=== PATIENT | male | born 1950 ===

== ENCOUNTER 2019-03-31 10:53 | Inpatient (IN) | payer MEDICARE, MEDICAID ==
[2019-03-31] MEDS ORDERED: Ondansetron INJ* 2 MG/ML VIAL IV PRN (14:26)
[2019-03-31] MEDS ORDERED: methylPREDNISolone SOD 40 MG* 1 ML VIAL IV SCH (15:00)
[2019-03-31 15:24] LABS: ABS Lymphocytes 0.8 10^3/ul (1.0-4.8); ABS Monocytes 0.7 10^3/ul (0-0.8); Hematocrit 41 % (42-52); Hemoglobin 13.5 g/dL (14.0-18.0); Lymphocyte % 7.6 %; Mean Corpuscular HGB Conc 33 g/dL (31-36); Mean Corpuscular Hemoglobin 32 pg (27-31); Mean Corpuscular Volume 98 fL (80-94); Mean Platelet Volume 7.2 fL (7.4-10.4); Platelet Count 193 10^3/uL (150-450); Red Blood Count 4.23 10^6 /uL (4.18-5.48); Red Cell Distribution Width 18 % (10.5-15); White Blood Count 10.5 10^3/uL (3.5-10.8)
[2019-03-31 16:00] LABS: BUN/Creatinine Ratio 27.1 (8-20); Calcium 9.3 mg/dL (8.6-10.3); EGFR African American 107.5 (>60); EGFR Non-African American 88.9 (>60); Magnesium 2.3 mg/dL (1.9-2.7); Potassium 4.4 mmol/L (3.5-5.0)
[2019-03-31] MEDS: cefTRIAXone(*) 1 GM in NS 0.9% 50 ML* 50 ML IVPB SCH (16:04)
[2019-03-31] MEDS: methylPREDNISolone SOD 40 MG* 1 ML VIAL IV SCH ×2 (16:04→23:08)
[2019-03-31] MEDS: Azithromycin TAB* 250 MG PO SCH (16:04)
[2019-03-31] MEDS: Nicotine PATCH 14 MG/24 HR* PATCH TRANSDERM SCH (16:05)
--- NOTE | 2019-03-31 16:14 | HP ---
HISTORY AND PHYSICAL: DATE OF ADMISSION: 03/31/19 SOURCE OF INFORMATION: History obtained from interview with the patient, review of records from [place]. RELIABILITY: Good. CHIEF COMPLAINT: Respiratory failure. HISTORY OF PRESENT ILLNESS: This is a 69-year-old man with past medical history of severe COPD, on 3 L home oxygen, reportedly CHF-unknown type, chronic smoker of 1 pack per day for about 60 years, who had been in his usual state of health until Thursday approximately 4 days before his admission to [place] on 03/29/19, started to develop cough followed by the next day cough and shortness of breath bringing up sputum. He developed progressively shortness of breath until 03/29/19 when he presented to [facility], was admitted with acute respiratory failure, admitted inpatient, requiring Vapotherm. The patient is noted to have severe COPD, recurrent admissions, last in August 2018. For COPD exacerbation, he took about 8 days to recover at that time. The patient indicates this felt similar to that event. He has had increasing lower extremity edema in the absence of orthopnea or PND and absence of weight gain. He has had no fevers, chills, night sweats. No chest pain, lightheadedness, loss of consciousness, or change in medications. While his shortness of breath increased, he did not increase the use of his home inhalers, nor increase his home oxygen, but was found to have a greatly increased need of oxygen upon presentation to [facility]. After admission to [facility], he was started on methylprednisolone 80 mg q.8 hours as well as ceftriaxone and azithromycin, although chest x-ray report reviewed here does not indicate evidence of infiltrate or pneumonia as well as continued on inhaled nebulizers and COPD medications including inhaled steroids. Despite above interventions, his respiratory status was noted to not dramatically improve, still requiring Vapotherm. Because of the slow progress over the last 48 hours, he was thought to benefit from a higher level of care and was transferred to [facility] where he was admitted into the ICU. On presentation to the ICU, he did not require Vapotherm, he was placed on 5 L and satting 93%. Still endorsing cough, sputum production and shortness of breath at rest particularly after his paroxysm of cough. He does not generally feel any improvement from the last 48 hours of the hospital stay. PAST MEDICAL HISTORY: Includes: 1. COPD, multiple past admissions, most recent in [place] in August 2018. 2. Hypertension. 3. Hyperlipidemia. 4. CAD. 5. Hypothyroidism. 6. Congestive heart failure. 7. History of alcohol abuse. 8. History of anxiety and depression. 9. Restless legs syndrome. 10. Bipolar disorder. 11. Chronic constipation. 12. History of pleural effusions/chronic. 13. History of pneumonia. PAST SURGICAL HISTORY: Cardiac bypass, left foot reconstruction, status post left shoulder surgery, rotator cuff repair, left wrist fracture open reduction and internal fixation, right inguinal hernia repair. HOME MEDICATIONS: 1. Tylenol 500 every 6 hours. 2. Albuterol nebulizer every 2 hours as needed. 3. Aspirin 81 mg daily. 4. Atorvastatin 40 mg daily. 5. Coreg 3.125 mg b.i.d. 6. Vitamin B12 500 mcg daily. 7. Benadryl 25 mg in the evening. 8. Ferrous sulfate 325 mg daily. 9. Breo Ellipta daily. 10. Folic acid 1 mg daily. 11. Furosemide 20 mg twice daily. 12. Guaifenesin 600 mg twice daily. 13. DuoNeb q.4 hours as needed. 14. Levothyroxine 125 mcg daily. 15. Lisinopril 2.5 mg daily. 16. Lorazepam 0.5 mg 3 times a day. 17. Nystatin topically as needed. 18. Endocet 10/325 in the evening. 19. Potassium chloride 10 mEq twice daily. 20. SSKI 0.6 mL 4 times a day as needed. 21. Quetiapine 100 mg twice daily. 22. Ropinirole 1.5 mg in the evening. 23. Sertraline 50 mg daily. 24. Spironolactone 50 mg daily. 25. Thiamine 100 mg daily. ALLERGIES: To LEVAQUIN and LATEX. FAMILY HISTORY: CAD in "everybody in my family." No COPD or other lung disorders. SOCIAL HISTORY: One pack a day for approximately 60 years. He is a retired machinist 2nd shift. Occasional alcohol. Lives at [facility]. REVIEW OF SYSTEMS: As per HPI, otherwise all other systems negative. PHYSICAL EXAMINATION GENERAL: Obese man, sitting up in bed, interactive, has cough paroxysmal after which he is short of breath, although ultimately catches his breath and talking in full sentences. VITAL SIGNS: In the ICU, blood pressure 132/85, heart rate is 73, respiratory rate is 18, 95% on 5 L nasal cannula. HEENT: Oropharynx is clear. He has moist mucous membranes. Sclerae anicteric. LUNGS: He has decreased breath sounds bilaterally with diffusely prominent wheezes and prolonged end-expiratory phase. HEART: He has a regular rate and rhythm. No audible murmurs, rubs, or gallops , although difficult to appreciate over wheezings. ABDOMEN: Distended, nontender. Positive bowel sounds. No rebound or guarding. EXTREMITIES: Warm, well perfused. He has 1+ bilateral lower extremity edema. NEUROLOGIC: He is alert and oriented x3. His cranial nerves II through XII are intact. He has no apparent anxiety, agitation, or depression. DIAGNOSTIC STUDIES/LAB DATA: Labs reviewed from [place]. New labs from today have been ordered. Hemoglobin 13.4, hematocrit 42.8, platelets 194, white blood cell count is 9.37. ABG on presentation: CO2 of 61, pO2 of 62, pH 7.43. INR 0.95. Sodium 142, potassium 4, chloride 99, bicarb 33, BUN 19, creatinine 0.9, lactic acid was 2.0 on presentation, calcium 8.6. Benign urinalysis. Data reviewed. Portable chest x-ray, no definite acute disease. EKG: Borderline left axis, right bundle-branch block. ASSESSMENT AND PLAN: This is a 69-year-old man admitted with respiratory failure from [facility] after 48 hours of therapy for chronic obstructive pulmonary disease exacerbation. 1. Acute hypoxic respiratory failure. Agree with [place]'s assessment on chronic obstructive pulmonary disease exacerbation based on clinical exam as well as past medical history and clinical crescendo leading to his shortness of breath. I do agree with their therapy, 80 mg of IV methylprednisolone q.8 hours. Continue with DuoNebs, tiotropium, and rescue albuterol-ipratropium. He has been weaned off of Vapotherm to 5 L nasal cannula, will continue as necessary. His recovery in August 2018 took about 8 days and he feels this is similar presentation as that was as well. Continue ceftriaxone and azithromycin for 3 additional days for a complete course of 5 days for his severe chronic obstructive pulmonary disease exacerbation. 2. Congestive heart failure, not in exacerbation, unknown type. Continue Lasix p.o. at home dose. 3. Hypertension. Lisinopril, spironolactone, Coreg 3.125 mg as well. 4. Bipolar disorder. Holding quetiapine currently until respiratory status is stabilized. 5. Hypothyroidism. Continue Synthroid. 6. Anxiety. Holding lorazepam until respiratory status is stabilized. 7. Depression. Continue sertraline. 8. Tobacco abuse. Continue nicotine patch. 9. DVT prophylaxis. Heparin subcu. [id number]/CPS #: [id number] [facility]
[2019-03-31] MEDS ORDERED: Albuterol/Ipratropium NEB.SOL* Albuterol 2.5 MG/Ipratropium 0.5 MG 3 ML INH SCH (19:00)
[2019-03-31] MEDS: Albuterol/Ipratropium NEB.SOL* Albuterol 2.5 MG/Ipratropium 0.5 MG 3 ML INH SCH ×2 (19:27→23:05)
[2019-03-31] MEDS: Mometasone/Formoter 200/5 MDI INH SCH (19:27)
[2019-03-31] MEDS ORDERED: Atorvastatin* 80 MG TAB PO ONE (21:00)
[2019-03-31] MEDS: Furosemide TAB* 20 MG PO SCH ×2 (21:09→21:13)
[2019-03-31] MEDS: Carvedilol TAB* 3.125 MG PO SCH (21:09)
[2019-03-31] MEDS: Nicotine Patch Removal NOTE FOLLOW UP SCH (21:10)
[2019-03-31] MEDS: Heparin VIAL(*) 5000 UNITS/ML VIAL (FIVE THOUSAND) SUBCUT SCH (21:10)
[2019-04-01] MEDS: Albuterol/Ipratropium NEB.SOL* Albuterol 2.5 MG/Ipratropium 0.5 MG 3 ML INH SCH ×6 (03:02→22:53)
[2019-04-01] MEDS: Heparin VIAL(*) 5000 UNITS/ML VIAL (FIVE THOUSAND) SUBCUT SCH ×3 (05:12→21:15)
[2019-04-01] MEDS: Levothyroxine TAB* 125 MCG TAB PO SCH (05:12)
[2019-04-01] MEDS: methylPREDNISolone SOD 40 MG* 1 ML VIAL IV SCH ×3 (06:32→22:52)
[2019-04-01] MEDS: Mometasone/Formoter 200/5 MDI INH SCH ×2 (07:38→19:24)
[2019-04-01] MEDS ORDERED: Spiriva Inhaler DEVICE* 1 EACH DEVICE INH ONE ×2 (09:00→14:00)
[2019-04-01] MEDS ORDERED: Furosemide TAB* 20 MG PO SCH (09:00)
[2019-04-01] MEDS: Carvedilol TAB* 3.125 MG PO SCH ×2 (09:09→20:27)
[2019-04-01] MEDS: Lisinopril TAB* 10 MG PO SCH (09:09)
[2019-04-01] MEDS: Aspirin 81 mg CHEW TAB* 81 MG TAB.CHEW PO SCH (09:10)
[2019-04-01] MEDS: Spironolactone TAB* 25 MG PO SCH (09:10)
[2019-04-01] MEDS: Azithromycin TAB* 250 MG PO SCH (09:10)
[2019-04-01] MEDS: Sertraline* 50 MG TAB PO SCH (09:10)
[2019-04-01] MEDS: Nicotine PATCH 14 MG/24 HR* PATCH TRANSDERM SCH (09:10)
[2019-04-01] MEDS: Furosemide TAB* 20 MG PO SCH (09:10)
[2019-04-01 13:41] LABS: ABS Lymphocytes 0.8 10^3/ul (1.0-4.8); ABS Monocytes 0.7 10^3/ul (0-0.8); ABS Neutrophils 9.4 10^3/ul (1.5-7.7); Hematocrit 41 % (42-52); Hemoglobin 13.7 g/dL (14.0-18.0); Lymphocyte % 7.4 %; Mean Corpuscular HGB Conc 34 g/dL (31-36); Mean Corpuscular Hemoglobin 33 pg (27-31); Mean Corpuscular Volume 97 fL (80-94); Mean Platelet Volume 7.5 fL (7.4-10.4); Platelet Count 196 10^3/uL (150-450); Red Blood Count 4.19 10^6 /uL (4.18-5.48); Red Cell Distribution Width 17 % (10.5-15); White Blood Count 10.8 10^3/uL (3.5-10.8)
[2019-04-01 13:46] LABS: BUN/Creatinine Ratio 31.3 (8-20); EGFR African American 141.5 (>60); EGFR Non-African American 116.9 (>60); Potassium 4.4 mmol/L (3.5-5.0)
[2019-04-01] MEDS: Tiotropium CAP.INH* CAP.INH/18 MCG (USE ORDER SET !) INH SCH (14:13)
[2019-04-01] MEDS: cefTRIAXone(*) 1 GM in NS 0.9% 50 ML* 50 ML IVPB SCH (14:53)
--- NOTE | 2019-04-01 17:47 | PN ---
Subjective Date of Service: 04/01/19 Interval History: Out of ICU today Down to 3L O2 NC Feels better but still SOB walking to bathroom, at baseline can walk indefinitely Objective Active Medications: Acetaminophen (Tylenol Tab*) 650 mg PO Q4H PRN PRN Reason: FEVER/PAIN Albuterol/Ipratropium (Duoneb (Albuterol 2.5 Mg/Ipratropium 0.5 Mg)) 1 neb INH [id number] [facility] Last Admin: 04/01/19 15:47 Dose: 1 neb Aspirin (Aspirin 81 Mg Chew Tab*) 81 mg PO DAILY [facility] Last Admin: 04/01/19 09:10 Dose: 81 mg Azithromycin (Zithromax Tab*) 250 mg PO DAILY [facility] Stop: 04/02/19 09:01 Last Admin: 04/01/19 09:10 Dose: 250 mg Carvedilol (Coreg Tab*) 3.125 mg PO BID [facility] Last Admin: 04/01/19 09:09 Dose: 3.125 mg Furosemide (Lasix Tab*) 40 mg PO DAILY [facility] Heparin Sodium (Porcine) (Heparin Vial(*)) 5,000 units SUBCUT Q8HR [facility] Last Admin: 04/01/19 14:13 Dose: 5,000 units Ceftriaxone Sodium 1 gm/ (Sodium Chloride) 50 mls @ 200 mls/hr IVPB Q24H [facility] Stop: 04/02/19 15:14 Last Admin: 04/01/19 14:53 Dose: 200 mls/hr Levothyroxine Sodium (Synthroid Tab*) 125 mcg PO DAILY@0600 [facility] Last Admin: 04/01/19 05:12 Dose: 125 mcg Lisinopril (Prinivil Tab*) 10 mg PO DAILY [facility] Last Admin: 04/01/19 09:09 Dose: 10 mg Methylprednisolone Sodium Succinate (Solu-Medrol 40 Mg) 60 mg IV Q8H [facility] Last Admin: 04/01/19 14:46 Dose: 60 mg Mometasone Furoate/Formoterol Fumar (Dulera 200/5 Mdi*) 2 puff INH BID [facility] Last Admin: 04/01/19 07:38 Dose: 2 puff Nicotine (Nicotine Patch 14 Mg/24 Hr*) 1 patch TRANSDERM DAILY [facility] Last Admin: 04/01/19 09:10 Dose: 1 patch Ondansetron HCl (Zofran Inj*) 4 mg IV Q4H PRN PRN Reason: NAUSEA/VOMITING Oxycodone/Acetaminophen (Percocet 5/325 Tab*) 2 tab PO Q8H PRN PRN Reason: PAIN Pharmacy Profile Note (Nicotine Patch Removal Note*) 1 note FOLLOW UP [facility]100 [facility] Last Admin: 03/31/19 21:10 Dose: 1 note Sertraline HCl (Zoloft*) 50 mg PO DAILY [facility] Last Admin: 04/01/19 09:10 Dose: 50 mg Spironolactone (Aldactone Tab*) 25 mg PO DAILY [facility] Last Admin: 04/01/19 09:10 Dose: 25 mg Tiotropium [place] (Spiriva Cap.Inh*) 1 cap INH DAILY [facility] Last Admin: 04/01/19 14:13 Dose: 1 cap Vital Signs - 8 hr 04/01/19 04/01/19 04/01/19 10:00 10:01 11:00 Temperature Pulse Rate 69 73 70 Respiratory 16 23 18 Rate Blood Pressure 156/73 (mmHg) O2 Sat by Pulse 93 94 95 Oximetry 04/01/19 04/01/19 04/01/19 11:01 11:12 12:00 Temperature 97.1 F Pulse Rate 68 68 65 Respiratory 19 17 18 Rate Blood Pressure 166/80 (mmHg) O2 Sat by Pulse 95 97 93 Oximetry 04/01/19 04/01/19 04/01/19 12:01 13:00 13:01 Temperature Pulse Rate 65 79 79 Respiratory 22 27 18 Rate Blood Pressure 143/71 149/76 (mmHg) O2 Sat by Pulse 94 94 85 Oximetry 04/01/19 04/01/19 04/01/19 14:19 15:47 17:03 Temperature 96.9 F 98.8 F Pulse Rate 95 68 65 Respiratory 24 16 22 Rate Blood Pressure 157/66 124/57 (mmHg) O2 Sat by Pulse 95 98 97 Oximetry Oxygen Devices in Use Now: Nasal Cannula Appearance: NAD Eyes: No Scleral Icterus, PERRLA Ears/Nose/Mouth/Throat: NL Teeth, Lips, Gums, Clear Oropharnyx Neck: NL Appearance and Movements; NL JVP, Trachea Midline Respiratory: Symmetrical Chest Expansion and Respiratory Effort, - - diffuse wheeze, poor air entry Cardiovascular: RRR Abdominal: NL Sounds; No Tenderness; No Distention, No Hepatosplenomegaly Lymphatic: No Cervical Adenopathy Skin: - - 1+ le edema b/l Neurological: Alert and Oriented x 3 Result Diagrams: 04/01/19 13:00 04/01/19 13:00 Microbiology and Other Data: Microbiology 03/31/19 16:30 Nasal Screen MRSA (PCR) - Final Nasal Mrsa Not Detected Assess/Plan/Problems-Billing Assessment: 69 yo M transferred from [place] with hypoxic respiratory failure in setting of suspected COPD exacerbation - Patient Problems (1) Acute respiratory failure with hypoxia Comment: suspect COPD exacerbation Off vapotherm since transfer Last hospital stay 8 days at [place] with the same in 2018 c/w IV steroids, dulera, tiotropium wean oxygen (2) COPD (chronic obstructive pulmonary disease) Comment: As above for respiratory failure (3) CHF (congestive heart failure) Comment: not in exacerbation does not want to take home lasix BID switched to 40mg daily in AM unknown type CHF (4) Anxiety Comment: lorazepam on hold can restart if respiratory status stable and requested (5) Tobacco abuse Comment: nicotine patch cessation counseling (6) DVT prophylaxis Comment: HSQ
[2019-04-01] MEDS: guaiFENesin ER TAB 600 MG PO SCH (20:27)
[2019-04-01] MEDS: Nicotine Patch Removal NOTE FOLLOW UP SCH (20:28)
[2019-04-01] MEDS: Melatonin 3 MG TAB PO PRN (21:40)
[2019-04-02] MEDS ORDERED: Benzonatate CAP* 100 MG PO ONE (01:25)
[2019-04-02] MEDS: Albuterol/Ipratropium NEB.SOL* Albuterol 2.5 MG/Ipratropium 0.5 MG 3 ML INH SCH ×5 (03:04→23:15)
[2019-04-02] MEDS: Heparin VIAL(*) 5000 UNITS/ML VIAL (FIVE THOUSAND) SUBCUT SCH ×3 (06:03→21:38)
[2019-04-02] MEDS: Levothyroxine TAB* 125 MCG TAB PO SCH (06:03)
[2019-04-02] MEDS: methylPREDNISolone SOD 40 MG* 1 ML VIAL IV SCH (06:15)
[2019-04-02] MEDS: Tiotropium CAP.INH* CAP.INH/18 MCG (USE ORDER SET !) INH SCH (07:28)
[2019-04-02] MEDS: Mometasone/Formoter 200/5 MDI INH SCH ×2 (07:28→19:24)
[2019-04-02] MEDS: Carvedilol TAB* 3.125 MG PO SCH ×2 (09:45→20:45)
[2019-04-02] MEDS: Spironolactone TAB* 25 MG PO SCH (09:45)
[2019-04-02] MEDS: Lisinopril TAB* 10 MG PO SCH (09:45)
[2019-04-02] MEDS: Furosemide TAB* 40 MG PO SCH (09:46)
[2019-04-02] MEDS: Sertraline* 50 MG TAB PO SCH (09:46)
[2019-04-02] MEDS: Aspirin 81 mg CHEW TAB* 81 MG TAB.CHEW PO SCH (09:46)
[2019-04-02] MEDS: guaiFENesin ER TAB 600 MG PO SCH (09:46)
[2019-04-02] MEDS: Azithromycin TAB* 250 MG PO SCH (09:46)
[2019-04-02] MEDS: Nicotine PATCH 14 MG/24 HR* PATCH TRANSDERM SCH (09:46)
[2019-04-02] MEDS ORDERED: Benzocaine/Menthol LOZ* 1 LOZENGE PO PRN (10:14)
[2019-04-02] MEDS ORDERED: Piperacillin/Tazobac ADVAN(*) 3.375 GM in NS 0.9% 100 ML* 100 ML IVPB ONE (10:30)
[2019-04-02] MEDS ORDERED: Zosyn per Pharmacy* NOTE FOLLOW UP SCH (11:00)
[2019-04-02] MEDS ORDERED: Vancomycin per Pharmacy* NOTE FOLLOW UP PRN (11:38)
[2019-04-02] MEDS: oxyCODONE/Acetamin 5/325 MG* TAB PO PRN (11:55)
[2019-04-02] MEDS: methylPREDNISolone 125 MG* 2 ML VIAL IV SCH ×2 (11:56→17:16)
[2019-04-02] MEDS: Benzonatate CAP* 100 MG PO PRN (11:59)
[2019-04-02] MEDS: Azithromycin 500 mg/250 ml NS 500 MG/250 ML BAG IVPB SCH (11:59)
[2019-04-02] MEDS ORDERED: Vancomycin(*) 2,000 MG in NS 0.9% 500 ML* 500 ML IVPB ONE (12:00)
--- NOTE | 2019-04-02 14:16 | PN ---
Subjective Date of Service: 04/02/19 Interval History: Very sob. Unable to talk in full sentences this am.Coughing fit Objective Active Medications: Acetaminophen (Tylenol Tab*) 650 mg PO Q4H PRN PRN Reason: FEVER/PAIN Albuterol/Ipratropium (Duoneb (Albuterol 2.5 Mg/Ipratropium 0.5 Mg)) 1 neb INH Q6H [facility] Last Admin: 04/02/19 10:13 Dose: 1 neb Albuterol/Ipratropium (Duoneb (Albuterol 2.5 Mg/Ipratropium 0.5 Mg)) 1 neb INH Q2H PRN PRN Reason: SOB/WHEEZING Aspirin (Aspirin 81 Mg Chew Tab*) 81 mg PO DAILY [facility] Last Admin: 04/02/19 09:46 Dose: 81 mg Benzonatate (Tessalon Cap*) 100 mg PO BID PRN PRN Reason: COUGH Last Admin: 04/02/19 11:59 Dose: 100 mg Carvedilol (Coreg Tab*) 3.125 mg PO BID [facility] Last Admin: 04/02/19 09:45 Dose: 3.125 mg Furosemide (Lasix Tab*) 40 mg PO DAILY [facility] Last Admin: 04/02/19 09:46 Dose: 40 mg Heparin Sodium (Porcine) (Heparin Vial(*)) 5,000 units SUBCUT Q8HR [facility] Last Admin: 04/02/19 12:53 Dose: 5,000 units Azithromycin (Zithromax 500 Mg/250 Ml) 500 mg in 250 mls @ 250 mls/hr IVPB Q24H [facility] Last Admin: 04/02/19 11:59 Dose: 250 mls/hr Piperacillin Sod/Tazobactam (Sod 3.375 gm/ Sodium Chloride) 100 mls @ 25 mls/ hr IVPB Q8H [facility] Vancomycin HCl 1,000 mg/ (Sodium Chloride) 250 mls @ 166.667 mls/hr IVPB Q8H [facility] Levothyroxine Sodium (Synthroid Tab*) 125 mcg PO DAILY@0600 [facility] Last Admin: 04/02/19 06:03 Dose: 125 mcg Lisinopril (Prinivil Tab*) 10 mg PO DAILY [facility] Last Admin: 04/02/19 09:45 Dose: 10 mg Melatonin (Melatonin) 3 mg PO BEDTIME PRN PRN Reason: SLEEP Last Admin: 04/01/19 21:40 Dose: 3 mg Methylprednisolone Sodium Succinate (Solu-Medrol 125mg *) 60 mg IV Q6H [facility] Last Admin: 04/02/19 11:56 Dose: 60 mg Mometasone Furoate/Formoterol Fumar (Dulera 200/5 Mdi*) 2 puff INH BID [facility] Last Admin: 04/02/19 07:28 Dose: 2 puff Nicotine (Nicotine Patch 14 Mg/24 Hr*) 1 patch TRANSDERM DAILY [facility] Last Admin: 04/02/19 09:46 Dose: 1 patch Oxycodone/Acetaminophen (Percocet 5/325 Tab*) 2 tab PO Q8H PRN PRN Reason: PAIN Last Admin: 04/02/19 11:55 Dose: 2 tab Pharmacy Consult (Zosyn Per Pharmacy*) 1 note FOLLOW UP .ZOSYN PER PHARMACY [facility] Pharmacy Consult (Vancomycin Per Pharmacy*) 1 note FOLLOW UP . PRN PRN Reason: PER PROTOCOL Pharmacy Profile Note (Nicotine Patch Removal Note*) 1 note FOLLOW UP [address] [facility] Last Admin: 04/01/19 20:28 Dose: Not Given Pharmacy Profile Note (Vancomycin Trough Check) 1 note FOLLOW UP ONCE ONE Stop: 04/03/19 11:31 Sertraline HCl (Zoloft*) 50 mg PO DAILY [facility] Last Admin: 04/02/19 09:46 Dose: 50 mg Spironolactone (Aldactone Tab*) 25 mg PO DAILY [facility] Last Admin: 04/02/19 09:45 Dose: 25 mg Tamsulosin HCl (Flomax Cap*) 0.4 mg PO DAILY [facility] Throat Lozenges (Chloraseptic Vijay*) 1 vijay PO Q6H PRN PRN Reason: SORE THROAT Tiotropium [place] (Spiriva Cap.Inh*) 1 cap INH DAILY [facility] Last Admin: 04/02/19 07:28 Dose: 1 cap Vital Signs - 8 hr 04/02/19 04/02/19 04/02/19 06:59 07:29 08:00 Temperature 97.8 F Pulse Rate 61 65 Respiratory 20 16 20 Rate Blood Pressure 118/51 (mmHg) O2 Sat by Pulse 94 97 Oximetry 04/02/19 04/02/19 04/02/19 10:15 11:39 11:55 Temperature 96.7 F Pulse Rate 80 73 Respiratory 18 20 18 Rate Blood Pressure 131/52 (mmHg) O2 Sat by Pulse 98 95 Oximetry Oxygen Devices in Use Now: Nasal Cannula Eyes: No Scleral Icterus Neck: NL Appearance and Movements; NL JVP Respiratory: Symmetrical Chest Expansion and Respiratory Effort, - - bilateral wheezes, rhonchi Cardiovascular: NL Sounds; No Murmurs; No JVD, RRR Abdominal: NL Sounds; No Tenderness; No Distention Neurological: Alert and Oriented x 3 Result Diagrams: 04/01/19 13:00 04/01/19 13:00 Microbiology and Other Data: Microbiology 03/31/19 16:30 Nasal Screen MRSA (PCR) - Final Nasal Mrsa Not Detected Assess/Plan/Problems-Billing Assessment: 69 yo M transferred from [place] with hypoxic respiratory failure in setting of suspected COPD exacerbation - Patient Problems (1) Pneumonia Current Visit: Yes Status: Acute Code(s): J18.9 - PNEUMONIA, UNSPECIFIED ORGANISM SNOMED Code(s): 873468563 Comment: No improvement on CAP coverage for a few days Will change to HCAP coverage with zosyn vanco and atypical coverage with azithromycin (2) COPD (chronic obstructive pulmonary disease) Current Visit: Yes Status: Acute Code(s): J44.9 - CHRONIC OBSTRUCTIVE PULMONARY DISEASE, UNSPECIFIED SNOMED Code(s): 75800512 Comment: Will increase solumedrol, make duoneb more freq prn exapand antibiotics (3) Acute respiratory failure with hypoxia Current Visit: Yes Status: Acute Code(s): J96.01 - ACUTE RESPIRATORY FAILURE WITH HYPOXIA SNOMED Code(s): 19564531 Comment: sec copd exacerbation and pneumonia Off vapotherm since transfer Last hospital stay 8 days at [place] with the same in 2018 (4) Anxiety Current Visit: Yes Status: Acute Code(s): F41.9 - ANXIETY DISORDER, UNSPECIFIED SNOMED Code(s): 21735136 Comment: lorazepam on hold can restart if respiratory status stable and requested (5) CHF (congestive heart failure) Current Visit: Yes Status: Acute Code(s): I50.9 - HEART FAILURE, UNSPECIFIED SNOMED Code(s): 28335504 Comment: not in exacerbation does not want to take home lasix BID switched to 40mg daily in AM unknown type CHF (6) DVT prophylaxis Current Visit: Yes Status: Acute Code(s): Z29.9 - ENCOUNTER FOR PROPHYLACTIC MEASURES, UNSPECIFIED SNOMED Code(s): 811949509 Comment: HSQ (7) Tobacco abuse Current Visit: Yes Status: Acute Code(s): Z72.0 - TOBACCO USE SNOMED Code( s): 981145022 Comment: nicotine patch cessation counseling
[2019-04-02] MEDS: ZOSYN 3.375 GM Q8H per EXTENDED INFUSION IVPB SCH ×4 (15:39→23:05)
[2019-04-02] MEDS: Tamsulosin CAP* 0.4 MG PO SCH (15:39)
[2019-04-02] MEDS: Vancomycin(*) 1,000 MG in NS 0.9% 250 ML* 250 ML IVPB SCH (19:28)
[2019-04-02] MEDS: Nicotine Patch Removal NOTE FOLLOW UP SCH (20:45)
[2019-04-03] MEDS: methylPREDNISolone 125 MG* 2 ML VIAL IV SCH ×4 (00:05→17:17)
[2019-04-03] MEDS: Melatonin 3 MG TAB PO PRN ×2 (02:38→20:28)
[2019-04-03] MEDS: Vancomycin(*) 1,000 MG in NS 0.9% 250 ML* 250 ML IVPB SCH ×3 (04:09→22:12)
[2019-04-03] MEDS: Albuterol/Ipratropium NEB.SOL* Albuterol 2.5 MG/Ipratropium 0.5 MG 3 ML INH SCH ×6 (05:47→19:20)
[2019-04-03] MEDS: Levothyroxine TAB* 125 MCG TAB PO SCH (05:59)
[2019-04-03] MEDS: Heparin VIAL(*) 5000 UNITS/ML VIAL (FIVE THOUSAND) SUBCUT SCH ×3 (06:03→20:30)
[2019-04-03] MEDS: Albuterol/Ipratropium NEB.SOL* Albuterol 2.5 MG/Ipratropium 0.5 MG 3 ML INH PRN ×2 (06:40→10:30)
[2019-04-03 06:44] LABS: ABS Lymphocytes 0.7 10^3/ul (1.0-4.8); ABS Monocytes 0.4 10^3/ul (0-0.8); Hematocrit 41 % (42-52); Hemoglobin 13.5 g/dL (14.0-18.0); Lymphocyte % 6.5 %; Mean Corpuscular HGB Conc 33 g/dL (31-36); Mean Corpuscular Hemoglobin 33 pg (27-31); Mean Corpuscular Volume 98 fL (80-94); Mean Platelet Volume 7.3 fL (7.4-10.4); Platelet Count 164 10^3/uL (150-450); Red Blood Count 4.16 10^6 /uL (4.18-5.48); Red Cell Distribution Width 17 % (10.5-15); White Blood Count 10.2 10^3/uL (3.5-10.8)
[2019-04-03 07:01] LABS: BUN/Creatinine Ratio 30.9 (8-20); Calcium 8.6 mg/dL (8.6-10.3); EGFR African American 139.1 (>60); Potassium 4.6 mmol/L (3.5-5.0)
[2019-04-03] MEDS: Tiotropium CAP.INH* CAP.INH/18 MCG (USE ORDER SET !) INH SCH (07:23)
[2019-04-03] MEDS: Mometasone/Formoter 200/5 MDI INH SCH ×2 (07:23→19:21)
[2019-04-03] MEDS: ZOSYN 3.375 GM Q8H per EXTENDED INFUSION IVPB SCH ×4 (07:46→17:41)
[2019-04-03] MEDS: oxyCODONE/Acetamin 5/325 MG* TAB PO PRN ×2 (07:46→17:15)
[2019-04-03] MEDS: Benzonatate CAP* 100 MG PO PRN ×2 (07:46→20:28)
[2019-04-03] MEDS: Nicotine PATCH 14 MG/24 HR* PATCH TRANSDERM SCH (07:47)
[2019-04-03] MEDS: Spironolactone TAB* 25 MG PO SCH (07:47)
[2019-04-03] MEDS: Lisinopril TAB* 10 MG PO SCH (07:48)
[2019-04-03] MEDS: Aspirin 81 mg CHEW TAB* 81 MG TAB.CHEW PO SCH (07:48)
[2019-04-03] MEDS: Tamsulosin CAP* 0.4 MG PO SCH (07:48)
[2019-04-03] MEDS: Carvedilol TAB* 3.125 MG PO SCH ×2 (07:48→20:28)
[2019-04-03] MEDS: Sertraline* 50 MG TAB PO SCH (07:48)
[2019-04-03] MEDS: Furosemide TAB* 40 MG PO SCH (07:48)
[2019-04-03] MEDS: Azithromycin 500 mg/250 ml NS 500 MG/250 ML BAG IVPB SCH (10:40)
[2019-04-03] MEDS ORDERED: Vancomycin Trough Check NOTE FOLLOW UP ONE (11:30)
--- NOTE | 2019-04-03 15:28 | PN ---
Subjective Date of Service: 04/03/19 Interval History: Reports that he feels 10% better.Still SOB.Coughing improved Objective Active Medications: Acetaminophen (Tylenol Tab*) 650 mg PO Q4H PRN PRN Reason: FEVER/PAIN Albuterol/Ipratropium (Duoneb (Albuterol 2.5 Mg/Ipratropium 0.5 Mg)) 1 neb INH Q2H PRN PRN Reason: SOB/WHEEZING Last Admin: 04/03/19 10:30 Dose: 1 neb Albuterol/Ipratropium (Duoneb (Albuterol 2.5 Mg/Ipratropium 0.5 Mg)) 1 neb INH Q6H [facility] Last Admin: 04/03/19 13:28 Dose: 1 neb Aspirin (Aspirin 81 Mg Chew Tab*) 81 mg PO DAILY [facility] Last Admin: 04/03/19 07:48 Dose: 81 mg Benzonatate (Tessalon Cap*) 100 mg PO BID PRN PRN Reason: COUGH Last Admin: 04/03/19 07:46 Dose: 100 mg Carvedilol (Coreg Tab*) 3.125 mg PO BID [facility] Last Admin: 04/03/19 07:48 Dose: 3.125 mg Furosemide (Lasix Tab*) 40 mg PO DAILY [facility] Last Admin: 04/03/19 07:48 Dose: 40 mg Heparin Sodium (Porcine) (Heparin Vial(*)) 5,000 units SUBCUT Q8HR [facility] Last Admin: 04/03/19 14:23 Dose: 5,000 units Azithromycin (Zithromax 500 Mg/250 Ml) 500 mg in 250 mls @ 250 mls/hr IVPB Q24H [facility] Last Admin: 04/03/19 10:40 Dose: 250 mls/hr Piperacillin Sod/Tazobactam (Sod 3.375 gm/ Sodium Chloride) 100 mls @ 25 mls/ hr IVPB Q8H [facility] Last Admin: 04/03/19 07:46 Dose: 25 mls/hr Vancomycin HCl 1,000 mg/ (Sodium Chloride) 250 mls @ 166.667 mls/hr IVPB Q8H [facility] Last Admin: 04/03/19 14:00 Dose: 166.667 mls/hr Levothyroxine Sodium (Synthroid Tab*) 125 mcg PO DAILY@0600 [facility] Last Admin: 04/03/19 05:59 Dose: 125 mcg Lisinopril (Prinivil Tab*) 10 mg PO DAILY [facility] Last Admin: 04/03/19 07:48 Dose: 10 mg Melatonin (Melatonin) 3 mg PO BEDTIME PRN PRN Reason: SLEEP Last Admin: 04/03/19 02:38 Dose: 3 mg Methylprednisolone Sodium Succinate (Solu-Medrol 125mg *) 60 mg IV Q6H [facility] Last Admin: 04/03/19 14:22 Dose: 60 mg Mometasone Furoate/Formoterol Fumar (Dulera 200/5 Mdi*) 2 puff INH BID [facility] Last Admin: 04/03/19 07:23 Dose: 2 puff Nicotine (Nicotine Patch 14 Mg/24 Hr*) 1 patch TRANSDERM DAILY [facility] Last Admin: 04/03/19 07:47 Dose: 1 patch Oxycodone/Acetaminophen (Percocet 5/325 Tab*) 2 tab PO Q8H PRN PRN Reason: PAIN Last Admin: 04/03/19 07:46 Dose: 2 tab Pharmacy Consult (Zosyn Per Pharmacy*) 1 note FOLLOW UP .ZOSYN PER PHARMACY [facility] Pharmacy Consult (Vancomycin Per Pharmacy*) 1 note FOLLOW UP . PRN PRN Reason: PER PROTOCOL Pharmacy Profile Note (Nicotine Patch Removal Note*) 1 note FOLLOW UP [address] [facility] Last Admin: 04/02/19 20:45 Dose: Not Given Sertraline HCl (Zoloft*) 50 mg PO DAILY [facility] Last Admin: 04/03/19 07:48 Dose: 50 mg Spironolactone (Aldactone Tab*) 25 mg PO DAILY [facility] Last Admin: 04/03/19 07:47 Dose: 25 mg Tamsulosin HCl (Flomax Cap*) 0.4 mg PO DAILY [facility] Last Admin: 04/03/19 07:48 Dose: 0.4 mg Throat Lozenges (Chloraseptic Vijay*) 1 vijay PO Q6H PRN PRN Reason: SORE THROAT Tiotropium [place] (Spiriva Cap.Inh*) 1 cap INH DAILY [facility] Last Admin: 04/03/19 07:23 Dose: 1 cap Vital Signs - 8 hr 04/03/19 04/03/19 04/03/19 07:26 07:46 09:48 Pulse Rate 70 Respiratory 22 20 20 Rate O2 Sat by Pulse 95 Oximetry 04/03/19 13:31 Pulse Rate 68 Respiratory 17 Rate O2 Sat by Pulse 95 Oximetry Oxygen Devices in Use Now: Nasal Cannula, High Flow Nasal Cannula Eyes: No Scleral Icterus Neck: NL Appearance and Movements; NL JVP Respiratory: - - bilateral wheezes and rhonchi Cardiovascular: NL Sounds; No Murmurs; No JVD, RRR Abdominal: NL Sounds; No Tenderness; No Distention Extremities: No Edema Neurological: Alert and Oriented x 3 Result Diagrams: 04/03/19 06:37 04/03/19 06:37 Microbiology and Other Data: Microbiology 03/31/19 16:30 Nasal Screen MRSA (PCR) - Final Nasal Mrsa Not Detected Assess/Plan/Problems-Billing Assessment: 69 yo M transferred from [place] with hypoxic respiratory failure in setting of suspected COPD exacerbation - Patient Problems (1) Pneumonia Current Visit: Yes Status: Acute Code(s): J18.9 - PNEUMONIA, UNSPECIFIED ORGANISM SNOMED Code(s): 918552023 Comment: No improvement on CAP coverage for a few days Changed to HCAP coverage with zosyn vanco and atypical coverage with azithromycin with improvement Can de escalate antibiotics based on clinical progress (2) COPD (chronic obstructive pulmonary disease) Current Visit: Yes Status: Acute Code(s): J44.9 - CHRONIC OBSTRUCTIVE PULMONARY DISEASE, UNSPECIFIED SNOMED Code(s): 31564401 Comment: Increased solumedrol, duoneb scheduled and prn exapanded antibiotics for pneumonia (3) Acute respiratory failure with hypoxia Current Visit: Yes Status: Acute Code(s): J96.01 - ACUTE RESPIRATORY FAILURE WITH HYPOXIA SNOMED Code(s): 61989956 Comment: sec copd exacerbation and pneumonia Off vapotherm since transfer Last hospital stay 8 days at [place] with the same in 2018 (4) Anxiety Current Visit: Yes Status: Acute Code(s): F41.9 - ANXIETY DISORDER, UNSPECIFIED SNOMED Code(s): 05455079 Comment: lorazepam on hold can restart if respiratory status stable and requested (5) CHF (congestive heart failure) Current Visit: Yes Status: Acute Code(s): I50.9 - HEART FAILURE, UNSPECIFIED SNOMED Code(s): 84431120 Comment: not in exacerbation does not want to take home lasix BID switched to 40mg daily in AM unknown type CHF (6) DVT prophylaxis Current Visit: Yes Status: Acute Code(s): Z29.9 - ENCOUNTER FOR PROPHYLACTIC MEASURES, UNSPECIFIED SNOMED Code(s): 801571410 Comment: HSQ (7) Tobacco abuse Current Visit: Yes Status: Acute Code(s): Z72.0 - TOBACCO USE SNOMED Code( s): 274826769 Comment: nicotine patch cessation counseling
[2019-04-03] MEDS: Nicotine* 2MG (FRUIT FLAVOR) GUM PO PRN (20:27)
[2019-04-03] MEDS: Nicotine Patch Removal NOTE FOLLOW UP SCH (20:43)
[2019-04-04] MEDS: methylPREDNISolone 125 MG* 2 ML VIAL IV SCH ×5 (00:15→23:21)
[2019-04-04] MEDS: ZOSYN 3.375 GM Q8H per EXTENDED INFUSION IVPB SCH ×8 (00:15→23:22)
[2019-04-04] MEDS: Albuterol/Ipratropium NEB.SOL* Albuterol 2.5 MG/Ipratropium 0.5 MG 3 ML INH SCH ×4 (01:17→19:59)
[2019-04-04] MEDS: Vancomycin(*) 1,000 MG in NS 0.9% 250 ML* 250 ML IVPB SCH ×3 (04:34→20:13)
[2019-04-04] MEDS: Levothyroxine TAB* 125 MCG TAB PO SCH (05:29)
[2019-04-04] MEDS: Heparin VIAL(*) 5000 UNITS/ML VIAL (FIVE THOUSAND) SUBCUT SCH ×3 (05:29→20:26)
[2019-04-04 06:58] LABS: ABS Lymphocytes 0.4 10^3/ul (1.0-4.8); ABS Monocytes 0.3 10^3/ul (0-0.8); ABS Neutrophils 6.8 10^3/ul (1.5-7.7); Eosinophil % 0.1 %; Hematocrit 38 % (42-52); Hemoglobin 12.4 g/dL (14.0-18.0); Lymphocyte % 5.8 %; Mean Corpuscular HGB Conc 33 g/dL (31-36); Mean Corpuscular Hemoglobin 32 pg (27-31); Mean Corpuscular Volume 99 fL (80-94); Mean Platelet Volume 7.1 fL (7.4-10.4); Platelet Count 133 10^3/uL (150-450); Red Blood Count 3.83 10^6 /uL (4.18-5.48); Red Cell Distribution Width 17 % (10.5-15); White Blood Count 7.6 10^3/uL (3.5-10.8)
[2019-04-04] MEDS: Mometasone/Formoter 200/5 MDI INH SCH ×2 (07:11→19:59)
[2019-04-04 07:14] LABS: BUN/Creatinine Ratio 34.2 (8-20); Calcium 8.3 mg/dL (8.6-10.3); EGFR African American 128.2 (>60); EGFR Non-African American 105.9 (>60); Potassium 4.6 mmol/L (3.5-5.0)
[2019-04-04] MEDS: Tiotropium CAP.INH* CAP.INH/18 MCG (USE ORDER SET !) INH SCH (07:15)
[2019-04-04] MEDS ORDERED: NS 0.9% 100 ML* 100 ML ONE (07:30)
[2019-04-04] MEDS: Lisinopril TAB* 10 MG PO SCH (07:40)
[2019-04-04] MEDS: Aspirin 81 mg CHEW TAB* 81 MG TAB.CHEW PO SCH (07:41)
[2019-04-04] MEDS: Tamsulosin CAP* 0.4 MG PO SCH (07:41)
[2019-04-04] MEDS: Nicotine PATCH 14 MG/24 HR* PATCH TRANSDERM SCH (07:41)
[2019-04-04] MEDS: Carvedilol TAB* 3.125 MG PO SCH ×2 (07:41→20:18)
[2019-04-04] MEDS: Sertraline* 50 MG TAB PO SCH (07:41)
[2019-04-04] MEDS: Furosemide TAB* 40 MG PO SCH (07:41)
[2019-04-04] MEDS: Spironolactone TAB* 25 MG PO SCH (07:41)
--- NOTE | 2019-04-04 07:42 | PN ---
Subjective Date of Service: 04/04/19 Interval History: HD # 5 on 04/04 69M [facility] severe COPD, on 3L NC baseline, HF? EF, HTN, HLD, CAD, hx of EtOH use d/ o, anxiety and depression who was admitted for hypoic resp filure requiring vapotherm, thought to be from COPD exacerbation. Ovenright no acute events, VSS, on 5L NC This morning, seen eating lunch, still with SOB, poor insight, would like to smoke. Discussed his COPD, tying it to his cigarette smoking, we discuss what drives COPD exacerbation and in retrospect he sees how this was very similar to last years event. No CP, ongoing wheezing, no coughing yet, no GI or complaints, does endorse depression. Objective Active Medications: Acetaminophen (Tylenol Tab*) 650 mg PO Q4H PRN PRN Reason: FEVER/PAIN Albuterol/Ipratropium (Duoneb (Albuterol 2.5 Mg/Ipratropium 0.5 Mg)) 1 neb INH Q2H PRN PRN Reason: SOB/WHEEZING Last Admin: 04/03/19 10:30 Dose: 1 neb Albuterol/Ipratropium (Duoneb (Albuterol 2.5 Mg/Ipratropium 0.5 Mg)) 1 neb INH Q6H YOU Last Admin: 04/04/19 07:11 Dose: 1 neb Aspirin (Aspirin 81 Mg Chew Tab*) 81 mg PO DAILY [facility] Last Admin: 04/03/19 07:48 Dose: 81 mg Benzonatate (Tessalon Cap*) 100 mg PO BID PRN PRN Reason: COUGH Last Admin: 04/03/19 20:28 Dose: 100 mg Carvedilol (Coreg Tab*) 3.125 mg PO BID YOU Last Admin: 04/03/19 20:28 Dose: 3.125 mg Furosemide (Lasix Tab*) 40 mg PO DAILY [facility] Last Admin: 04/03/19 07:48 Dose: 40 mg Heparin Sodium (Porcine) (Heparin Vial(*)) 5,000 units SUBCUT Q8HR [facility] Last Admin: 04/04/19 05:29 Dose: 5,000 units Azithromycin (Zithromax 500 Mg/250 Ml) 500 mg in 250 mls @ 250 mls/hr IVPB Q24H [facility] Last Admin: 04/03/19 10:40 Dose: 250 mls/hr Piperacillin Sod/Tazobactam (Sod 3.375 gm/ Sodium Chloride) 100 mls @ 25 mls/ hr IVPB Q8H [facility] Last Admin: 04/04/19 00:15 Dose: 25 mls/hr Vancomycin HCl 1,000 mg/ (Sodium Chloride) 250 mls @ 166.667 mls/hr IVPB Q8H [facility] Last Admin: 04/04/19 04:34 Dose: 166.667 mls/hr Levothyroxine Sodium (Synthroid Tab*) 125 mcg PO DAILY@0600 [facility] Last Admin: 04/04/19 05:29 Dose: 125 mcg Lisinopril (Prinivil Tab*) 10 mg PO DAILY [facility] Last Admin: 04/03/19 07:48 Dose: 10 mg Melatonin (Melatonin) 3 mg PO BEDTIME PRN PRN Reason: SLEEP Last Admin: 04/03/19 20:28 Dose: 3 mg Methylprednisolone Sodium Succinate (Solu-Medrol 125mg *) 60 mg IV Q6H [facility] Last Admin: 04/04/19 05:30 Dose: 60 mg Mometasone Furoate/Formoterol Fumar (Dulera 200/5 Mdi*) 2 puff INH BID [facility] Last Admin: 04/04/19 07:11 Dose: 2 puff Nicotine (Nicotine Patch 14 Mg/24 Hr*) 1 patch TRANSDERM DAILY [facility] Last Admin: 04/03/19 07:47 Dose: 1 patch Nicotine Polacrilex (Nicotine Gum*) 2 mg PO Q2H PRN PRN Reason: CRAVING Last Admin: 04/03/19 20:27 Dose: 2 mg Oxycodone/Acetaminophen (Percocet 5/325 Tab*) 2 tab PO Q8H PRN PRN Reason: PAIN Last Admin: 04/03/19 17:15 Dose: 2 tab Pharmacy Consult (Zosyn Per Pharmacy*) 1 note FOLLOW UP .ZOSYN PER PHARMACY [facility] Pharmacy Consult (Vancomycin Per Pharmacy*) 1 note FOLLOW UP . PRN PRN Reason: PER PROTOCOL Pharmacy Profile Note (Nicotine Patch Removal Note*) 1 note FOLLOW UP 2100 [facility] Last Admin: 04/03/19 20:43 Dose: 1 note Sertraline HCl (Zoloft*) 50 mg PO DAILY [facility] Last Admin: 04/03/19 07:48 Dose: 50 mg Spironolactone (Aldactone Tab*) 25 mg PO DAILY [facility] Last Admin: 04/03/19 07:47 Dose: 25 mg Tamsulosin HCl (Flomax Cap*) 0.4 mg PO DAILY [facility] Last Admin: 04/03/19 07:48 Dose: 0.4 mg Throat Lozenges (Chloraseptic Vijay*) 1 vijay PO Q6H PRN PRN Reason: SORE THROAT Last Admin: 04/03/19 20:27 Dose: 1 vijay Tiotropium Mccarley (Spiriva Cap.Inh*) 1 cap INH DAILY [facility] Last Admin: 04/04/19 07:15 Dose: 1 cap Vital Signs - 8 hr 04/04/19 04/04/19 01:18 07:17 Pulse Rate 59 72 Respiratory 20 16 Rate O2 Sat by Pulse 98 90 Oximetry Oxygen Devices in Use Now: Nasal Cannula Appearance: Obese man in NAD, sitting up eating lunch Eyes: No Scleral Icterus Ears/Nose/Mouth/Throat: NL Teeth, Lips, Gums, Clear Oropharnyx Neck: NL Appearance and Movements; NL JVP, Trachea Midline - Diffuse I and E wheeze, rhonchi, fair air movement, no focal consolidation Respiratory: - Cardiovascular: NL Sounds; No Murmurs; No JVD, RRR Abdominal: No Hepatosplenomegaly, - - Distended Lymphatic: No Cervical Adenopathy Extremities: No Edema Skin: No Rash or Ulcers Neurological: Alert and Oriented x 3 Result Diagrams: 04/04/19 06:51 04/04/19 06:51 Microbiology and Other Data: Microbiology 03/31/19 16:30 Nasal Screen MRSA (PCR) - Final Nasal Mrsa Not Detected Assess/Plan/Problems-Billing Assessment: 69M [facility] severe COPD, on 3L NC baseline, HF? EF, HTN, HLD, CAD, hx of EtOH use d/ o, anxiety and depression who was admitted for hypoic resp filure requring vapotherm, thought to be from COPD exacerbation - Patient Problems (1) Acute respiratory failure with hypoxia Current Visit: Yes Status: Acute Code(s): J96.01 - ACUTE RESPIRATORY FAILURE WITH HYPOXIA SNOMED Code(s): 83981679 Comment: -Posisbly all 2/2 to COPD exacerbation and possible underlying PNA -Conitinue IV steroids, triple inhaler therapy: LAMA, ICS, and LORNA -Steroids at 58 IV q 6hr->q8 (2) COPD (chronic obstructive pulmonary disease) Current Visit: Yes Status: Acute Code(s): J44.9 - CHRONIC OBSTRUCTIVE PULMONARY DISEASE, UNSPECIFIED SNOMED Code(s): 26183277 Comment: -GOLD 4, in exacerbation also on HAP coverage now Vanc/Zosyn, total abx Day 5/__ on 04/04 -Continue Solumedrol IV , will cut back to q 8 - (3) Pneumonia Current Visit: Yes Status: Acute Code(s): J18.9 - PNEUMONIA, UNSPECIFIED ORGANISM SNOMED Code(s): 287857893 Comment: -Changed to HCAP coverage with zosyn vanco and atypical coverage with azithromycin on HD # 3, now on Day 5/__ on 04/04 -Can de escalate antibiotics based on clinical progress (4) CHF (congestive heart failure) Current Visit: Yes Status: Acute Code(s): I50.9 - HEART FAILURE, UNSPECIFIED SNOMED Code(s): 92853032 Comment: -Does not want to take home lasix BID -switched to 40mg daily in AM -unknown type CHF, will see if echo can be located (5) Anxiety Current Visit: Yes Status: Acute Code(s): F41.9 - ANXIETY DISORDER, UNSPECIFIED SNOMED Code(s): 00584386 Comment: -Lorazepam on hold -can restart if respiratory status stable -Hydroxyzine if problematic anxeity, increase Sertraline to 100mg from 50mg (6) Tobacco abuse Current Visit: Yes Status: Acute Code(s): Z72.0 - TOBACCO USE SNOMED Code( s): 512083586 Comment: -nicotine patch -cessation counseling (7) Anemia Current Visit: Yes Status: Acute Code(s): D64.9 - ANEMIA, UNSPECIFIED SNOMED Code(s): 569582060 Comment: -CTM (8) DVT prophylaxis Current Visit: Yes Status: Acute Code(s): Z29.9 - ENCOUNTER FOR PROPHYLACTIC MEASURES, UNSPECIFIED SNOMED Code(s): 472896157 Comment: HSQ (9) Patient is full code Current Visit: Yes Status: Acute Code(s): Z78.9 - OTHER SPECIFIED HEALTH STATUS SNOMED Code(s): 209223552 Status and Disposition: Inpatient
[2019-04-04] MEDS: Albuterol/Ipratropium NEB.SOL* Albuterol 2.5 MG/Ipratropium 0.5 MG 3 ML INH PRN (11:18)
[2019-04-04] MEDS: Azithromycin 500 mg/250 ml NS 500 MG/250 ML BAG IVPB SCH (11:20)
[2019-04-04] MEDS ORDERED: NS 0.9% 250 ML* 250 ML ONE (13:38)
[2019-04-04] MEDS: Nicotine* 2MG (FRUIT FLAVOR) GUM PO PRN ×2 (13:43→20:18)
[2019-04-04] MEDS: hydrOXYzine HCL TAB* 25 MG PO PRN ×2 (14:47→20:18)
[2019-04-04] MEDS: Melatonin 3 MG TAB PO PRN (20:18)
[2019-04-04] MEDS: Benzonatate CAP* 100 MG PO PRN (20:18)
[2019-04-04] MEDS: Nicotine Patch Removal NOTE FOLLOW UP SCH (20:26)
[2019-04-05] MEDS: Albuterol/Ipratropium NEB.SOL* Albuterol 2.5 MG/Ipratropium 0.5 MG 3 ML INH SCH ×4 (01:47→19:10)
[2019-04-05] MEDS: Vancomycin(*) 1,000 MG in NS 0.9% 250 ML* 250 ML IVPB SCH ×2 (03:58→12:47)
[2019-04-05] MEDS: Heparin VIAL(*) 5000 UNITS/ML VIAL (FIVE THOUSAND) SUBCUT SCH ×4 (05:59→21:20)
[2019-04-05] MEDS: Levothyroxine TAB* 125 MCG TAB PO SCH (05:59)
[2019-04-05 06:15] LABS: EGFR African American 141.5 (>60); EGFR Non-African American 116.9 (>60)
--- NOTE | 2019-04-05 07:22 | PN ---
Subjective Date of Service: 04/05/19 Interval History: HD # 6 on 04/05 69M [facility] severe COPD, on 3L NC baseline, HF? EF, HTN, HLD, CAD, hx of EtOH use d/ o, anxiety and depression who was admitted for hypoic resp filure requiring vapotherm, thought to be from COPD exacerbation. Ovenright no acute events, VSS, on 5L NC This afternoon, pt reports feeling better, says easier to take a deep breath, able to ambulate to the bathroom. Feeling encouraged and wants to quit smoking. NO CP, no GI or MSK issues/ Objective Active Medications: Acetaminophen (Tylenol Tab*) 650 mg PO Q4H PRN PRN Reason: FEVER/PAIN Albuterol/Ipratropium (Duoneb (Albuterol 2.5 Mg/Ipratropium 0.5 Mg)) 1 neb INH Q2H PRN PRN Reason: SOB/WHEEZING Last Admin: 04/04/19 11:18 Dose: 1 neb Albuterol/Ipratropium (Duoneb (Albuterol 2.5 Mg/Ipratropium 0.5 Mg)) 1 neb INH Q6H YOU Last Admin: 04/05/19 01:47 Dose: Not Given Aspirin (Aspirin 81 Mg Chew Tab*) 81 mg PO DAILY [facility] Last Admin: 04/04/19 07:41 Dose: 81 mg Benzonatate (Tessalon Cap*) 100 mg PO BID PRN PRN Reason: COUGH Last Admin: 04/04/19 20:18 Dose: 100 mg Carvedilol (Coreg Tab*) 3.125 mg PO BID [facility] Last Admin: 04/04/19 20:18 Dose: 3.125 mg Furosemide (Lasix Tab*) 40 mg PO DAILY [facility] Last Admin: 04/04/19 07:41 Dose: 40 mg Heparin Sodium (Porcine) (Heparin Vial(*)) 5,000 units SUBCUT Q8HR [facility] Last Admin: 04/05/19 05:59 Dose: Not Given Hydroxyzine HCl (Atarax Tab*) 25 mg PO Q4H PRN PRN Reason: ANXIETY Last Admin: 04/04/19 20:18 Dose: 25 mg Azithromycin (Zithromax 500 Mg/250 Ml) 500 mg in 250 mls @ 250 mls/hr IVPB Q24H [facility] Last Admin: 04/04/19 11:20 Dose: 250 mls/hr Piperacillin Sod/Tazobactam (Sod 3.375 gm/ Sodium Chloride) 100 mls @ 25 mls/ hr IVPB Q8H [facility] Last Admin: 04/04/19 23:22 Dose: 25 mls/hr Vancomycin HCl 1,000 mg/ (Sodium Chloride) 250 mls @ 166.667 mls/hr IVPB Q8H [facility] Last Admin: 04/05/19 03:58 Dose: 166.667 mls/hr Levothyroxine Sodium (Synthroid Tab*) 125 mcg PO DAILY@0600 [facility] Last Admin: 04/05/19 05:59 Dose: 125 mcg Lisinopril (Prinivil Tab*) 10 mg PO DAILY [facility] Last Admin: 04/04/19 07:40 Dose: 10 mg Melatonin (Melatonin) 3 mg PO BEDTIME PRN PRN Reason: SLEEP Last Admin: 04/04/19 20:18 Dose: 3 mg Methylprednisolone Sodium Succinate (Solu-Medrol 125mg *) 60 mg IV Q8H [facility] Last Admin: 04/04/19 23:21 Dose: 60 mg Mometasone Furoate/Formoterol Fumar (Dulera 200/5 Mdi*) 2 puff INH BID [facility] Last Admin: 04/04/19 19:59 Dose: 2 puff Nicotine (Nicotine Patch 14 Mg/24 Hr*) 1 patch TRANSDERM DAILY [facility] Last Admin: 04/04/19 07:41 Dose: 1 patch Nicotine Polacrilex (Nicotine Gum*) 2 mg PO Q2H PRN PRN Reason: CRAVING Last Admin: 04/04/19 20:18 Dose: 2 mg Oxycodone/Acetaminophen (Percocet 5/325 Tab*) 2 tab PO Q8H PRN PRN Reason: PAIN Last Admin: 04/03/19 17:15 Dose: 2 tab Pharmacy Consult (Zosyn Per Pharmacy*) 1 note FOLLOW UP .ZOSYN PER PHARMACY [facility] Pharmacy Consult (Vancomycin Per Pharmacy*) 1 note FOLLOW UP . PRN PRN Reason: PER PROTOCOL Pharmacy Profile Note (Nicotine Patch Removal Note*) 1 note FOLLOW UP 2100 [facility] Last Admin: 04/04/19 20:26 Dose: 1 note Sertraline HCl (Zoloft*) 100 mg PO DAILY [facility] Spironolactone (Aldactone Tab*) 25 mg PO DAILY [facility] Last Admin: 04/04/19 07:41 Dose: 25 mg Tamsulosin HCl (Flomax Cap*) 0.4 mg PO DAILY [facility] Last Admin: 04/04/19 07:41 Dose: 0.4 mg Throat Lozenges (Chloraseptic Vijay*) 1 vijay PO Q6H PRN PRN Reason: SORE THROAT Last Admin: 04/03/19 20:27 Dose: 1 vijay Tiotropium Friend (Spiriva Cap.Inh*) 1 cap INH DAILY [facility] Last Admin: 04/04/19 07:15 Dose: 1 cap Vital Signs - 8 hr 04/05/19 02:59 Temperature 97.8 F Pulse Rate 69 Respiratory 16 Rate Blood Pressure 135/55 (mmHg) O2 Sat by Pulse 95 Oximetry Oxygen Devices in Use Now: Nasal Cannula Appearance: Obese man sitting in bed comfortably pleasant Neck: NL Appearance and Movements; NL JVP, Trachea Midline, No Thyroid Enlargement, Masses Respiratory: Symmetrical Chest Expansion and Respiratory Effort, - - Diffuse rhonchi, E wheeze dimished I wheeze compared to yesterday Cardiovascular: NL Sounds; No Murmurs; No JVD, RRR Abdominal: NL Sounds; No Tenderness; No Distention, No Hepatosplenomegaly Lymphatic: No Cervical Adenopathy, No Axillary Adenopathy Extremities: No Edema Skin: No Rash or Ulcers Neurological: Alert and Oriented x 3 Result Diagrams: 04/04/19 06:51 04/05/19 05:54 Microbiology and Other Data: Microbiology 03/31/19 16:30 Nasal Screen MRSA (PCR) - Final Nasal Mrsa Not Detected Assess/Plan/Problems-Billing Assessment: 69M [facility] severe COPD, on 3L NC baseline, HF? EF, HTN, HLD, CAD, hx of EtOH use d/ o, anxiety and depression who was admitted for hypoic resp filure requring vapotherm, thought to be from COPD exacerbation and PNA - Patient Problems (1) Acute respiratory failure with hypoxia Current Visit: Yes Status: Acute Code(s): J96.01 - ACUTE RESPIRATORY FAILURE WITH HYPOXIA SNOMED Code(s): 27211406 Comment: -2/2 to COPD exacerbation and possible underlying PNA -Conitinue IV steroids, triple inhaler therapy: LAMA, ICS, and LORNA -Steroids at 58 IV q 6hr->q8 (04/04), continue q8 for now (2) COPD (chronic obstructive pulmonary disease) Current Visit: Yes Status: Acute Code(s): J44.9 - CHRONIC OBSTRUCTIVE PULMONARY DISEASE, UNSPECIFIED SNOMED Code(s): 07501186 Comment: -GOLD 4, in exacerbation also on HAP coverage now Vanc/Zosyn, total abx Day 6/__ on 04/05, will descalate abx -Continue Solumedrol IV , q 8 (3) Pneumonia Current Visit: Yes Status: Acute Code(s): J18.9 - PNEUMONIA, UNSPECIFIED ORGANISM SNOMED Code(s): 996417571 Comment: -Changed to HCAP coverage with zosyn vanco and atypical coverage with azithromycin on HD # 3, now on Day 6/__ on 04/05, descalate to CTX and Azithro on 04/05 (4) CHF (congestive heart failure) Current Visit: Yes Status: Acute Code(s): I50.9 - HEART FAILURE, UNSPECIFIED SNOMED Code(s): 00536987 Comment: -Does not want to take home lasix BID -switched to 40mg daily in AM -unknown type CHF, TTE pending (5) Anxiety Current Visit: Yes Status: Acute Code(s): F41.9 - ANXIETY DISORDER, UNSPECIFIED SNOMED Code(s): 16354734 Comment: -Lorazepam on hold -can restart if respiratory status stable -Hydroxyzine if problematic anxeity, increase Sertraline to 100mg from 50mg (6) Tobacco abuse Current Visit: Yes Status: Acute Code(s): Z72.0 - TOBACCO USE SNOMED Code( s): 202412573 Comment: -nicotine patch -cessation counseling (7) Anemia Current Visit: Yes Status: Acute Code(s): D64.9 - ANEMIA, UNSPECIFIED SNOMED Code(s): 625539425 Comment: -CTM (8) DVT prophylaxis Current Visit: Yes Status: Acute Code(s): Z29.9 - ENCOUNTER FOR PROPHYLACTIC MEASURES, UNSPECIFIED SNOMED Code(s): 781801331 Comment: HSQ (9) Patient is full code Current Visit: Yes Status: Acute Code(s): Z78.9 - OTHER SPECIFIED HEALTH STATUS SNOMED Code(s): 793314560 Status and Disposition: Inpatient
[2019-04-05] MEDS: Mometasone/Formoter 200/5 MDI INH SCH ×2 (07:25→19:11)
[2019-04-05] MEDS: Tiotropium CAP.INH* CAP.INH/18 MCG (USE ORDER SET !) INH SCH (07:25)
[2019-04-05] MEDS: ZOSYN 3.375 GM Q8H per EXTENDED INFUSION IVPB SCH ×2 (07:57)
[2019-04-05] MEDS: Tamsulosin CAP* 0.4 MG PO SCH (08:01)
[2019-04-05] MEDS: Carvedilol TAB* 3.125 MG PO SCH ×2 (08:01→21:19)
[2019-04-05] MEDS: Furosemide TAB* 40 MG PO SCH (08:01)
[2019-04-05] MEDS: Aspirin 81 mg CHEW TAB* 81 MG TAB.CHEW PO SCH (08:01)
[2019-04-05] MEDS: Lisinopril TAB* 10 MG PO SCH (08:01)
[2019-04-05] MEDS: Spironolactone TAB* 25 MG PO SCH (08:01)
[2019-04-05] MEDS: Sertraline* 100 MG TAB PO SCH (08:01)
[2019-04-05] MEDS: Nicotine PATCH 14 MG/24 HR* PATCH TRANSDERM SCH (08:01)
[2019-04-05] MEDS: methylPREDNISolone 125 MG* 2 ML VIAL IV SCH ×2 (08:36→16:41)
[2019-04-05] MEDS: Albuterol/Ipratropium NEB.SOL* Albuterol 2.5 MG/Ipratropium 0.5 MG 3 ML INH PRN (10:03)
[2019-04-05] MEDS: Azithromycin 500 mg/250 ml NS 500 MG/250 ML BAG IVPB SCH (11:08)
[2019-04-05] MEDS ORDERED: Perflutren Lipid Microsphere* 3 ML VIAL ONE (15:06)
[2019-04-05] MEDS: Nicotine* 2MG (FRUIT FLAVOR) GUM PO PRN ×2 (16:41→21:19)
[2019-04-05] MEDS: cefTRIAXone(*) 1 GM in NS 0.9% 50 ML* 50 ML IVPB SCH (16:41)
--- NOTE | 2019-04-05 17:44 | ECHO ---
*Health System* [place] [address] Fax #: [phone] Transthoracic Echocardiogram Patient: Nacny, Height: 73 in / Salter E 185.4 cm : 1950 Weight: 289.4 lb / Study Date: 04/05/2019 131.5 kg Age: 69 BP: 135 / 55 Gender: M BMI/BSA: 38.3 kg/m^2 HR: 75 bpm / 2.52 m^2 *Piping Drafter: * Dora Max RDCS RN *Referring Physician: * Tania JuradoReading Physician: * Elham Rod MD Indications: SOB. History: Coronary artery disease. Congestive heart failure. Chronic obstructive pulmonary disease. ETOH use. Risk factors: Hypertension. Obese. Hyperlipidemia. Conclusions Summary: 1. Left ventricle: The cavity size is normal. Wall thickness is moderately increased. Systolic function is normal. The estimated ejection fraction is 55-60%. Wall motion is normal; there are no regional wall motion abnormalities. There is no consistent Doppler evidence of clinically significant diastolic dysfunction. 2. Mitral valve: There is trace regurgitation. 3. Tricuspid valve: There is trace regurgitation. 4. Pulmonic valve: There is trace regurgitation. 5. Pulmonary arteries: Systolic pressure is estimated to be 42 mm Hg. There is mild pulmonary hypertension. 6. No previous echocardiogram available. Study data: Transthoracic echocardiogram. Procedure: Transthoracic echocardiography was performed. The study was technically limited due to body habitus and COPD. A total of 4 ml of Definity was given IV. Image enhancement administered by Tank Kang RN. Complete 2D, spectral Doppler, and color flow Doppler. Patient status: Inpatient. Patient room number: 414-02. Rhythm: Normal sinus rhythm. Findings Left ventricle: The cavity size is normal. Wall thickness is moderately increased. Systolic function is normal. The estimated ejection fraction is 55-60%. Wall motion is normal; there are no regional wall motion abnormalities. There is no consistent Doppler evidence of clinically significant diastolic dysfunction. Right ventricle: The cavity size is mildly to moderately dilated. Systolic function is low normal. Left atrium: The atrium is normal in size. Right atrium: The atrium is normal in size. Mitral valve: The leaflets are mildly thickened. There is no evidence of stenosis. There is trace regurgitation. Aortic valve: Not well visualized. The leaflets are mildly thickened. There is no evidence of stenosis. There is no regurgitation. Tricuspid valve: Not well visualized. There is no evidence of stenosis. There is trace regurgitation. Pulmonic valve: Not well visualized. There is no evidence of stenosis. There is trace regurgitation. Aorta: Aortic root: The aortic root is not dilated. Ascending aorta: The ascending aorta is not dilated. Aortic arch: The aortic arch is not visualized. Pericardium: There is no pericardial effusion. Pulmonary arteries: Not well visualized. Systolic pressure is estimated to be 42 mm Hg. There is mild pulmonary hypertension. Systemic veins: Not well visualized. Measurements Left ventricle Value Ref Aortic valve Value Ref GABBY, LAX 5.4 cm 4.2 - Richard diam, ED 2.2 cm ----- 5.8 Peak v, S 1.3 m/sec ----- PW, ED, LAX (H) 1.3 cm 0.6 - VTI, S 25.3 cm ----- 1.0 Mean grad, S 3.0 mm Hg ----- PW, ED (H) 1.3 cm 0.6 - Peak grad, S 7.0 mm Hg ----- 1.0 LVOT/AV, VTI ratio 0.94 ----- IVS/PW, ED 1.09 -------- E', lat richard, TDI 13.6 cm/sec >=10.0 Mitral valve Value Ref E/e', lat richard, TDI 7 -------- Peak E 0.96 m/sec ----- E', med richard, TDI 13.5 cm/sec >=7.0 Peak A 0.82 m/sec --- -- E/e', med richard, TDI 7 -------- Decel time 208 ms ----- E', avg, TDI 13.6 cm/sec -------- Peak grad, D 3.7 mm Hg ----- E/e', avg, TDI 7 <=14 Peak E/A ratio 1.2 --- -- LVOT Value Ref Pulmonic valve Value Ref Peak jacky, S 0.58 m/sec -------- Peak v, S 1.4 m/sec ----- VTI, S 23.7 cm -------- Peak grad, S 8.0 mm Hg ----- Mean grad, S 2 mm Hg -------- Tricuspid valve Value Ref Ventricular septum Value Ref TR peak v (H) 2.91 m/sec <=2.8 IVS, ED (H) 1.5 cm 0.6 - Peak RV-RA grad, S 34 mm Hg ----- 1.0 Max TR jacky 2.91 m/sec ----- Right ventricle Value Ref Aortic root Value Ref GABBY, LAX 5.2 cm -------- Root diam 3.6 cm <4.5 GABBY minor ax, A4C (H) 4.0 cm 1.9 - mid 3.5 Ascending aorta Value Ref AAo AP diam, S 3.4 cm ----- Left atrium Value Ref ML dim, A4C 4.4 cm -------- SI dim, A4C 5.9 cm -------- Vol/bsa, ES, 1-p 28 ml/m^2 12 - 37 A4C Vol/bsa, ES, A/L 29 ml/m^2 16 - 34 Right atrium Value Ref ML dim, ES, A4C 3.9 cm 2.6 - 4.4 SI dim, ES, A4C (H) 5.9 cm 3.4 - 5.3 Estimated RAP 8 mm Hg -------- Legend: (L) and (H) elizabeth values outside specified reference range. Prepared and electronically signed by Elham Rod MD 04/05/2019 17:43
[2019-04-05] MEDS: Benzonatate CAP* 100 MG PO PRN (21:19)
[2019-04-05] MEDS: Melatonin 3 MG TAB PO PRN (21:19)
[2019-04-05] MEDS: hydrOXYzine HCL TAB* 25 MG PO PRN (21:19)
[2019-04-05] MEDS: Acetaminophen TAB* 325 MG PO PRN (21:20)
[2019-04-05] MEDS: Nicotine Patch Removal NOTE FOLLOW UP SCH (21:21)
[2019-04-06] MEDS: methylPREDNISolone 125 MG* 2 ML VIAL IV SCH ×3 (01:13→19:52)
[2019-04-06] MEDS: Albuterol/Ipratropium NEB.SOL* Albuterol 2.5 MG/Ipratropium 0.5 MG 3 ML INH SCH ×4 (01:22→20:49)
[2019-04-06] MEDS: Albuterol/Ipratropium NEB.SOL* Albuterol 2.5 MG/Ipratropium 0.5 MG 3 ML INH PRN ×2 (04:43→11:01)
[2019-04-06] MEDS: Levothyroxine TAB* 125 MCG TAB PO SCH (06:03)
[2019-04-06] MEDS: Heparin VIAL(*) 5000 UNITS/ML VIAL (FIVE THOUSAND) SUBCUT SCH ×3 (06:04→21:19)
[2019-04-06 06:54] LABS: ABS Lymphocytes 0.4 10^3/ul (1.0-4.8); ABS Monocytes 0.3 10^3/ul (0-0.8); ABS Neutrophils 6.4 10^3/ul (1.5-7.7); Hematocrit 38 % (42-52); Hemoglobin 12.8 g/dL (14.0-18.0); Lymphocyte % 5.8 %; Mean Corpuscular HGB Conc 34 g/dL (31-36); Mean Corpuscular Hemoglobin 33 pg (27-31); Mean Corpuscular Volume 98 fL (80-94); Mean Platelet Volume 7.6 fL (7.4-10.4); Platelet Count 141 10^3/uL (150-450); Red Blood Count 3.88 10^6 /uL (4.18-5.48); Red Cell Distribution Width 17 % (10.5-15); White Blood Count 7.2 10^3/uL (3.5-10.8)
[2019-04-06 07:01] LABS: BUN/Creatinine Ratio 36.8 (8-20); Calcium 8.3 mg/dL (8.6-10.3); EGFR African American 170.5 (>60); EGFR Non-African American 140.9 (>60); Potassium 4.6 mmol/L (3.5-5.0)
--- NOTE | 2019-04-06 07:33 | PN ---
Subjective Date of Service: 04/06/19 Interval History: HD # 7 on 04/06 69M PMH severe COPD, on 3L NC baseline, HFpEF, HTN, HLD, CAD, hx of EtOH use d/o , anxiety and depression who was admitted for hypoxic resp filure requiring vapotherm, thought to be from COPD exacerbation. Overnight, no acute events, VSS This morning, seen eating breakfast feeling again improved, hasn't walked much, still sig wheezing, no CP no GI complaints, hasn't had a BM x 3 days had echo yesterday, essentially normal. Objective Active Medications: Acetaminophen (Tylenol Tab*) 650 mg PO Q4H PRN PRN Reason: FEVER/PAIN Last Admin: 04/05/19 21:20 Dose: 650 mg Albuterol/Ipratropium (Duoneb (Albuterol 2.5 Mg/Ipratropium 0.5 Mg)) 1 neb INH Q2H PRN PRN Reason: SOB/WHEEZING Last Admin: 04/06/19 04:43 Dose: 1 neb Albuterol/Ipratropium (Duoneb (Albuterol 2.5 Mg/Ipratropium 0.5 Mg)) 1 neb INH Q6H YOU Last Admin: 04/06/19 01:22 Dose: Not Given Aspirin (Aspirin 81 Mg Chew Tab*) 81 mg PO DAILY [facility] Last Admin: 04/05/19 08:01 Dose: 81 mg Benzonatate (Tessalon Cap*) 100 mg PO BID PRN PRN Reason: COUGH Last Admin: 04/05/19 21:19 Dose: 100 mg Carvedilol (Coreg Tab*) 3.125 mg PO BID YOU Last Admin: 04/05/19 21:19 Dose: 3.125 mg Furosemide (Lasix Tab*) 40 mg PO DAILY [facility] Last Admin: 04/05/19 08:01 Dose: 40 mg Heparin Sodium (Porcine) (Heparin Vial(*)) 5,000 units SUBCUT Q8HR [facility] Last Admin: 04/06/19 06:04 Dose: Not Given Hydroxyzine HCl (Atarax Tab*) 25 mg PO Q4H PRN PRN Reason: ANXIETY Last Admin: 04/05/19 21:19 Dose: 25 mg Azithromycin (Zithromax 500 Mg/250 Ml) 500 mg in 250 mls @ 250 mls/hr IVPB Q24H [facility] Last Admin: 04/05/19 11:08 Dose: 250 mls/hr Ceftriaxone Sodium 1 gm/ (Sodium Chloride) 50 mls @ 200 mls/hr IVPB Q24H [facility] Last Admin: 04/05/19 16:41 Dose: 200 mls/hr Levothyroxine Sodium (Synthroid Tab*) 125 mcg PO DAILY@0600 [facility] Last Admin: 04/06/19 06:03 Dose: 125 mcg Lisinopril (Prinivil Tab*) 10 mg PO DAILY [facility] Last Admin: 04/05/19 08:01 Dose: 10 mg Melatonin (Melatonin) 3 mg PO BEDTIME PRN PRN Reason: SLEEP Last Admin: 04/05/19 21:19 Dose: 3 mg Methylprednisolone Sodium Succinate (Solu-Medrol 125mg *) 60 mg IV Q8H [facility] Last Admin: 04/06/19 01:13 Dose: 60 mg Mometasone Furoate/Formoterol Fumar (Dulera 200/5 Mdi*) 2 puff INH BID [facility] Last Admin: 04/05/19 19:11 Dose: 2 puff Nicotine (Nicotine Patch 14 Mg/24 Hr*) 1 patch TRANSDERM DAILY [facility] Last Admin: 04/05/19 08:01 Dose: 1 patch Nicotine Polacrilex (Nicotine Gum*) 2 mg PO Q2H PRN PRN Reason: CRAVING Last Admin: 04/05/19 21:19 Dose: 2 mg Oxycodone/Acetaminophen (Percocet 5/325 Tab*) 2 tab PO Q8H PRN PRN Reason: PAIN Last Admin: 04/03/19 17:15 Dose: 2 tab Pharmacy Profile Note (Nicotine Patch Removal Note*) 1 note FOLLOW UP 2100 [facility] Last Admin: 04/05/19 21:21 Dose: 1 note Sertraline HCl (Zoloft*) 100 mg PO DAILY [facility] Last Admin: 04/05/19 08:01 Dose: 100 mg Spironolactone (Aldactone Tab*) 25 mg PO DAILY [facility] Last Admin: 04/05/19 08:01 Dose: 25 mg Tamsulosin HCl (Flomax Cap*) 0.4 mg PO DAILY [facility] Last Admin: 04/05/19 08:01 Dose: 0.4 mg Throat Lozenges (Chloraseptic Vijay*) 1 vijay PO Q6H PRN PRN Reason: SORE THROAT Last Admin: 04/03/19 20:27 Dose: 1 vijay Tiotropium [place] (Spiriva Cap.Inh*) 1 cap INH DAILY [facility] Last Admin: 04/05/19 07:25 Dose: 1 cap Vital Signs - 8 hr 04/05/19 04/06/19 04/06/19 23:37 03:24 04:45 Temperature 97.7 F 97.9 F Pulse Rate 66 58 63 Respiratory 18 18 16 Rate Blood Pressure 147/45 154/61 (mmHg) O2 Sat by Pulse 95 94 92 Oximetry Oxygen Devices in Use Now: Nasal Cannula Appearance: Well appearing man in NAD Eyes: No Scleral Icterus Ears/Nose/Mouth/Throat: NL Teeth, Lips, Gums, Clear Oropharnyx Neck: NL Appearance and Movements; NL JVP Respiratory: Symmetrical Chest Expansion and Respiratory Effort, - - Diffuse E wheeze and rhonchi, mildly improved air entry Cardiovascular: NL Sounds; No Murmurs; No JVD, RRR Abdominal: NL Sounds; No Tenderness; No Distention, No Hepatosplenomegaly Lymphatic: No Cervical Adenopathy Extremities: No Edema Skin: No Rash or Ulcers Neurological: Alert and Oriented x 3 Result Diagrams: 04/06/19 06:13 04/06/19 06:13 Microbiology and Other Data: Microbiology 03/31/19 16:30 Nasal Screen MRSA (PCR) - Final Nasal Mrsa Not Detected Assess/Plan/Problems-Billing Assessment: 69M OM severe COPD, on 3L NC baseline, HFpEF, HTN, HLD, CAD, hx of EtOH use d/o , anxiety and depression who was admitted for hypoxic resp failure requring vapotherm, thought to be from COPD exacerbation and PNA, slow improvement. - Patient Problems (1) Acute respiratory failure with hypoxia Current Visit: Yes Status: Acute Code(s): J96.01 - ACUTE RESPIRATORY FAILURE WITH HYPOXIA SNOMED Code(s): 57116112 Comment: -2/2 to COPD exacerbation and possible underlying PNA -Conitinue IV steroids, triple inhaler therapy: LAMA, ICS, and LORNA -Steroids at 60 IV q 6hr->q8 (04/04)->q12 (04/06), space to oral as tolerated (2) COPD (chronic obstructive pulmonary disease) Current Visit: Yes Status: Acute Code(s): J44.9 - CHRONIC OBSTRUCTIVE PULMONARY DISEASE, UNSPECIFIED SNOMED Code(s): 04876222 Comment: -GOLD 4, in exacerbation was on HAP coverage now Vanc/Zosyn, descalated to CTX Azithro, total abx Day 06/18 on 04/06, will descalate abx, finsh Azithro tomorrow, CTX to stop day after -Continue Solumedrol IV, now at q 12 (3) Pneumonia Current Visit: Yes Status: Acute Code(s): J18.9 - PNEUMONIA, UNSPECIFIED ORGANISM SNOMED Code(s): 453908735 Comment: -Changed to HCAP coverage with zosyn vanco and atypical coverage with azithromycin on HD # 3, now on Day 06/18 on 04/06, descalate to CTX and Azithro on 04/05, Finish Azithro 04/07, CTX day after (4) CHF (congestive heart failure) Current Visit: Yes Status: Acute Code(s): I50.9 - HEART FAILURE, UNSPECIFIED SNOMED Code(s): 45317653 Comment: -Does not want to take home lasix BID -switched to 40mg daily in AM -unknown type CHF, TTE shows preserved EF and no sig diastolic dysfxn, classify as HFpEF (5) Anxiety Current Visit: Yes Status: Acute Code(s): F41.9 - ANXIETY DISORDER, UNSPECIFIED SNOMED Code(s): 56510279 Comment: -Lorazepam on hold, pt has not been asking for it -Hydroxyzine if problematic anxeity, increase Sertraline to 100mg from 50mg (6) Tobacco abuse Current Visit: Yes Status: Acute Code(s): Z72.0 - TOBACCO USE SNOMED Code( s): 300555447 Comment: -nicotine patch -cessation counseling (7) Anemia Current Visit: Yes Status: Acute Code(s): D64.9 - ANEMIA, UNSPECIFIED SNOMED Code(s): 830537547 Comment: -CTM (8) DVT prophylaxis Current Visit: Yes Status: Acute Code(s): Z29.9 - ENCOUNTER FOR PROPHYLACTIC MEASURES, UNSPECIFIED SNOMED Code(s): 582568268 Comment: HSQ (9) Patient is full code Current Visit: Yes Status: Acute Code(s): Z78.9 - OTHER SPECIFIED HEALTH STATUS SNOMED Code(s): 513247865 Status and Disposition: Inpatient, will order PT today, pt needed 8-10 days last time, anticipate d/c Thursday or Thursday
[2019-04-06] MEDS: Tiotropium CAP.INH* CAP.INH/18 MCG (USE ORDER SET !) INH SCH (07:43)
[2019-04-06] MEDS: Mometasone/Formoter 200/5 MDI INH SCH ×2 (07:43→20:46)
[2019-04-06] MEDS: Aspirin 81 mg CHEW TAB* 81 MG TAB.CHEW PO SCH (08:41)
[2019-04-06] MEDS: Carvedilol TAB* 3.125 MG PO SCH ×2 (08:41→19:58)
[2019-04-06] MEDS: Nicotine PATCH 14 MG/24 HR* PATCH TRANSDERM SCH (08:41)
[2019-04-06] MEDS: Lisinopril TAB* 10 MG PO SCH (08:41)
[2019-04-06] MEDS: Spironolactone TAB* 25 MG PO SCH (08:42)
[2019-04-06] MEDS: Furosemide TAB* 40 MG PO SCH (08:42)
[2019-04-06] MEDS: Sertraline* 100 MG TAB PO SCH (08:42)
[2019-04-06] MEDS: Tamsulosin CAP* 0.4 MG PO SCH (08:42)
[2019-04-06] MEDS: Azithromycin 500 mg/250 ml NS 500 MG/250 ML BAG IVPB SCH (10:59)
[2019-04-06] MEDS: cefTRIAXone(*) 1 GM in NS 0.9% 50 ML* 50 ML IVPB SCH (14:59)
--- NOTE | 2019-04-06 17:39 | PN ---
Hospitalist Progress Note Date of Service: 04/06/19 Off Service Note: 69M PMH severe COPD, on 3L NC baseline, HFpEF, HTN, HLD, CAD, hx of EtOH use d/o , anxiety and depression who was admitted for hypoxic resp failure requiring vapotherm, thought to be from COPD exacerbation, slow to improve COPD: Finally improving today 04/06, tapered to BID steroids (still IV) 3L NC is baseline Last time took him 8-10 days HFpEF: Normal Echo here, unlikely volume component Dispo: Ordered PT today, he lives at home alone
[2019-04-06] MEDS: hydrOXYzine HCL TAB* 25 MG PO PRN (19:58)
[2019-04-06] MEDS: Acetaminophen TAB* 325 MG PO PRN (19:58)
[2019-04-06] MEDS: Nicotine Patch Removal NOTE FOLLOW UP SCH (20:01)
[2019-04-07] MEDS: Albuterol/Ipratropium NEB.SOL* Albuterol 2.5 MG/Ipratropium 0.5 MG 3 ML INH SCH ×4 (00:57→19:42)
[2019-04-07] MEDS: Heparin VIAL(*) 5000 UNITS/ML VIAL (FIVE THOUSAND) SUBCUT SCH ×3 (05:32→22:30)
[2019-04-07] MEDS: Levothyroxine TAB* 125 MCG TAB PO SCH (05:33)
[2019-04-07] MEDS: Acetaminophen TAB* 325 MG PO PRN ×2 (05:42→17:57)
[2019-04-07] MEDS: methylPREDNISolone 125 MG* 2 ML VIAL IV SCH ×3 (05:57→17:54)
[2019-04-07 06:38] LABS: BUN/Creatinine Ratio 33.3 (8-20); Calcium 8.2 mg/dL (8.6-10.3); EGFR African American 151.9 (>60); EGFR Non-African American 125.5 (>60); Potassium 4.5 mmol/L (3.5-5.0)
[2019-04-07] MEDS: Mometasone/Formoter 200/5 MDI INH SCH ×2 (07:00→19:36)
[2019-04-07] MEDS: Tiotropium CAP.INH* CAP.INH/18 MCG (USE ORDER SET !) INH SCH (07:00)
[2019-04-07] MEDS: Lisinopril TAB* 10 MG PO SCH (08:49)
[2019-04-07] MEDS: Sertraline* 100 MG TAB PO SCH (08:49)
[2019-04-07] MEDS: Aspirin 81 mg CHEW TAB* 81 MG TAB.CHEW PO SCH (08:49)
[2019-04-07] MEDS: Nicotine PATCH 14 MG/24 HR* PATCH TRANSDERM SCH (08:50)
[2019-04-07] MEDS: Tamsulosin CAP* 0.4 MG PO SCH (08:50)
[2019-04-07] MEDS: Spironolactone TAB* 25 MG PO SCH (08:50)
[2019-04-07] MEDS: hydrOXYzine HCL TAB* 25 MG PO PRN ×3 (08:51→22:38)
[2019-04-07] MEDS: Carvedilol TAB* 3.125 MG PO SCH ×2 (08:51→20:53)
[2019-04-07] MEDS: Furosemide TAB* 40 MG PO SCH (08:51)
[2019-04-07] MEDS ORDERED: Azithromycin TAB* 250 MG PO SCH (09:00)
[2019-04-07] MEDS: Albuterol/Ipratropium NEB.SOL* Albuterol 2.5 MG/Ipratropium 0.5 MG 3 ML INH PRN (11:46)
[2019-04-07] MEDS: cefTRIAXone(*) 1 GM in NS 0.9% 50 ML* 50 ML IVPB SCH (15:11)
--- NOTE | 2019-04-07 17:36 | PN ---
Subjective Date of Service: 04/07/19 Interval History: HOSPITALIST PROGRESS NOTE Patient seen and examined at bedside. Care reviewed and d/w Kristin Dudley RN. He feels very dyspneic today. States he has minimal improvement with nebulizer treatment, requires 5-6 liters of supplemental O2. Family History: Unchanged from Admission Social History: Unchanged from Admission Past Medical History: Unchanged from Admission Objective Active Medications: Acetaminophen (Tylenol Tab*) 650 mg PO Q4H PRN PRN Reason: FEVER/PAIN Last Admin: 04/07/19 05:42 Dose: 650 mg Albuterol/Ipratropium (Duoneb (Albuterol 2.5 Mg/Ipratropium 0.5 Mg)) 1 neb INH Q2H PRN PRN Reason: SOB/WHEEZING Last Admin: 04/07/19 11:46 Dose: 1 neb Albuterol/Ipratropium (Duoneb (Albuterol 2.5 Mg/Ipratropium 0.5 Mg)) 1 neb INH Q6H YOU Last Admin: 04/07/19 13:52 Dose: 1 neb Aspirin (Aspirin 81 Mg Chew Tab*) 81 mg PO DAILY [facility] Last Admin: 04/07/19 08:49 Dose: 81 mg Benzonatate (Tessalon Cap*) 100 mg PO BID PRN PRN Reason: COUGH Last Admin: 04/05/19 21:19 Dose: 100 mg Carvedilol (Coreg Tab*) 3.125 mg PO BID [facility] Last Admin: 04/07/19 08:51 Dose: 3.125 mg Furosemide (Lasix Tab*) 40 mg PO DAILY [facility] Last Admin: 04/07/19 08:51 Dose: 40 mg Heparin Sodium (Porcine) (Heparin Vial(*)) 5,000 units SUBCUT Q8HR [facility] Last Admin: 04/07/19 15:08 Dose: Not Given Hydroxyzine HCl (Atarax Tab*) 25 mg PO Q4H PRN PRN Reason: ANXIETY Last Admin: 04/07/19 08:51 Dose: 25 mg Ceftriaxone Sodium 1 gm/ (Sodium Chloride) 50 mls @ 200 mls/hr IVPB Q24H [facility] Stop: 04/08/19 23:00 Last Admin: 04/07/19 15:11 Dose: 200 mls/hr Levothyroxine Sodium (Synthroid Tab*) 125 mcg PO DAILY@0600 [facility] Last Admin: 04/07/19 05:33 Dose: 125 mcg Lisinopril (Prinivil Tab*) 10 mg PO DAILY [facility] Last Admin: 04/07/19 08:49 Dose: 10 mg Melatonin (Melatonin) 3 mg PO BEDTIME PRN PRN Reason: SLEEP Last Admin: 04/05/19 21:19 Dose: 3 mg Methylprednisolone Sodium Succinate (Solu-Medrol 125mg *) 60 mg IV Q12H [facility] Last Admin: 04/07/19 05:57 Dose: 60 mg Mometasone Furoate/Formoterol Fumar (Dulera 200/5 Mdi*) 2 puff INH BID [facility] Last Admin: 04/07/19 07:00 Dose: 2 puff Nicotine (Nicotine Patch 14 Mg/24 Hr*) 1 patch TRANSDERM DAILY [facility] Last Admin: 04/07/19 08:50 Dose: 1 patch Nicotine Polacrilex (Nicotine Gum*) 2 mg PO Q2H PRN PRN Reason: CRAVING Last Admin: 04/05/19 21:19 Dose: 2 mg Pharmacy Profile Note (Nicotine Patch Removal Note*) 1 note FOLLOW UP 2099 [facility] Last Admin: 04/06/19 20:01 Dose: Not Given Sertraline HCl (Zoloft*) 100 mg PO DAILY [facility] Last Admin: 04/07/19 08:49 Dose: 100 mg Spironolactone (Aldactone Tab*) 25 mg PO DAILY [facility] Last Admin: 04/07/19 08:50 Dose: 25 mg Tamsulosin HCl (Flomax Cap*) 0.4 mg PO DAILY [facility] Last Admin: 04/07/19 08:50 Dose: 0.4 mg Throat Lozenges (Chloraseptic [place]*) 1 britt PO Q6H PRN PRN Reason: SORE THROAT Last Admin: 04/03/19 20:27 Dose: 1 britt Tiotropium [place] (Spiriva Cap.Inh*) 1 cap INH DAILY [facility] Last Admin: 04/07/19 07:00 Dose: 1 cap Vital Signs - 8 hr 04/07/19 04/07/19 04/07/19 11:32 11:46 13:53 Temperature 97.6 F Pulse Rate 73 76 73 Respiratory 18 24 18 Rate Blood Pressure 129/57 (mmHg) O2 Sat by Pulse 94 96 97 Oximetry Oxygen Devices in Use Now: Nasal Cannula - 5-6 liters Appearance: Morbid obese gentleman sitting up in bed in mild respiratory distress. Eyes: No Scleral Icterus Ears/Nose/Mouth/Throat: Mucous Membranes Moist Neck: Trachea Midline Respiratory: Symmetrical Chest Expansion and Respiratory Effort, - - BS+ bilaterally with wheezes and rhonchi Cardiovascular: RRR - Normal S1 and S2 Neurological: Alert and Oriented x 3, NL Muscle Strength and Tone Result Diagrams: 04/06/19 06:13 04/07/19 05:51 Assess/Plan/Problems-Billing Assessment: Mr Cruz is a 69yo M with PMH of severe COPD, on 3L NC baseline, HFpEF, HTN, HLD, CAD, hx of EtOH use d/o, anxiety and depression who was admitted for hypoxic resp failure requring vapotherm, thought to be from COPD exacerbation and PNA, improving slowly. - Patient Problems (1) Acute respiratory failure with hypoxia Comment: - Secondary to COPD exacerbation and possible underlying PNA - Continue supplemental O2. (2) COPD (chronic obstructive pulmonary disease) Comment: - With exacerbation - to complete Ceftriaxone tomorrow, but still with significant dyspnea. - More dyspneic today, after Solumedrol decreased to q12h - will bring back to q8h. - Continue bronchodilators, inhaled steroids. (3) CHF (congestive heart failure) Comment: - HFpEF - not compliant with diuretics. - Now on Furosemide and Aldactone daily, but states he's "peeing too much" and would rather not take it. (4) DVT prophylaxis Comment: - SQ heparin. (5) Patient is full code Status and Disposition: Inpatient.
[2019-04-07] MEDS: Nicotine* 2MG (FRUIT FLAVOR) GUM PO PRN (20:10)
[2019-04-07] MEDS: Nicotine Patch Removal NOTE FOLLOW UP SCH (20:53)
[2019-04-07] MEDS: Melatonin 3 MG TAB PO PRN (22:38)
[2019-04-08] MEDS: Albuterol/Ipratropium NEB.SOL* Albuterol 2.5 MG/Ipratropium 0.5 MG 3 ML INH SCH ×5 (01:10→19:43)
[2019-04-08] MEDS: methylPREDNISolone 125 MG* 2 ML VIAL IV SCH ×3 (02:38→18:07)
[2019-04-08] MEDS: Acetaminophen TAB* 325 MG PO PRN (04:42)
[2019-04-08] MEDS: Heparin VIAL(*) 5000 UNITS/ML VIAL (FIVE THOUSAND) SUBCUT SCH ×3 (05:29→22:17)
[2019-04-08] MEDS: Levothyroxine TAB* 125 MCG TAB PO SCH (05:29)
[2019-04-08] MEDS: Mometasone/Formoter 200/5 MDI INH SCH ×2 (07:21→19:43)
[2019-04-08] MEDS: Tiotropium CAP.INH* CAP.INH/18 MCG (USE ORDER SET !) INH SCH (07:21)
--- NOTE | 2019-04-08 09:25 | PN ---
Subjective Date of Service: 04/08/19 Interval History: HOSPITALIST PROGRESS NOTE Patient seen and examined at bedside. Care reviewed and d/w Lori Hampton RN. He feels his dyspnea is better than yesterday, but still intense. Dyspneic at rest, worse with minimal exertion. Family History: Unchanged from Admission Social History: Unchanged from Admission Past Medical History: Unchanged from Admission Objective Active Medications: Acetaminophen (Tylenol Tab*) 650 mg PO Q4H PRN PRN Reason: FEVER/PAIN Last Admin: 04/08/19 04:42 Dose: 650 mg Albuterol/Ipratropium (Duoneb (Albuterol 2.5 Mg/Ipratropium 0.5 Mg)) 1 neb INH Q2H PRN PRN Reason: SOB/WHEEZING Last Admin: 04/07/19 11:46 Dose: 1 neb Albuterol/Ipratropium (Duoneb (Albuterol 2.5 Mg/Ipratropium 0.5 Mg)) 1 neb INH Q6H [facility] Last Admin: 04/08/19 07:21 Dose: 1 neb Aspirin (Aspirin 81 Mg Chew Tab*) 81 mg PO DAILY [facility] Last Admin: 04/07/19 08:49 Dose: 81 mg Benzonatate (Tessalon Cap*) 100 mg PO BID PRN PRN Reason: COUGH Last Admin: 04/05/19 21:19 Dose: 100 mg Carvedilol (Coreg Tab*) 3.125 mg PO BID [facility] Last Admin: 04/07/19 20:53 Dose: 3.125 mg Furosemide (Lasix Tab*) 40 mg PO DAILY [facility] Last Admin: 04/07/19 08:51 Dose: 40 mg Heparin Sodium (Porcine) (Heparin Vial(*)) 5,000 units SUBCUT Q8HR [facility] Last Admin: 04/08/19 05:29 Dose: Not Given Hydroxyzine HCl (Atarax Tab*) 25 mg PO Q4H PRN PRN Reason: ANXIETY Last Admin: 04/07/19 22:38 Dose: 25 mg Ceftriaxone Sodium 1 gm/ (Sodium Chloride) 50 mls @ 200 mls/hr IVPB Q24H [facility] Stop: 04/08/19 23:00 Last Admin: 04/07/19 15:11 Dose: 200 mls/hr Levothyroxine Sodium (Synthroid Tab*) 125 mcg PO DAILY@0600 [facility] Last Admin: 04/08/19 05:29 Dose: 125 mcg Lisinopril (Prinivil Tab*) 10 mg PO DAILY [facility] Last Admin: 04/07/19 08:49 Dose: 10 mg Melatonin (Melatonin) 3 mg PO BEDTIME PRN PRN Reason: SLEEP Last Admin: 04/07/19 22:38 Dose: 3 mg Methylprednisolone Sodium Succinate (Solu-Medrol 125mg *) 60 mg IV Q8H [facility] Last Admin: 04/08/19 02:38 Dose: 60 mg Mometasone Furoate/Formoterol Fumar (Dulera 200/5 Mdi*) 2 puff INH BID [facility] Last Admin: 04/08/19 07:21 Dose: 2 puff Nicotine (Nicotine Patch 14 Mg/24 Hr*) 1 patch TRANSDERM DAILY [facility] Last Admin: 04/07/19 08:50 Dose: 1 patch Nicotine Polacrilex (Nicotine Gum*) 2 mg PO Q2H PRN PRN Reason: CRAVING Last Admin: 04/07/19 20:10 Dose: 2 mg Pharmacy Profile Note (Nicotine Patch Removal Note*) 1 note FOLLOW UP 2100 [facility] Last Admin: 04/07/19 20:53 Dose: Not Given Sertraline HCl (Zoloft*) 100 mg PO DAILY [facility] Last Admin: 04/07/19 08:49 Dose: 100 mg Tamsulosin HCl (Flomax Cap*) 0.4 mg PO DAILY [facility] Last Admin: 04/07/19 08:50 Dose: 0.4 mg Throat Lozenges (Chloraseptic Vijay*) 1 vijay PO Q6H PRN PRN Reason: SORE THROAT Last Admin: 04/03/19 20:27 Dose: 1 vijay Tiotropium [place] (Spiriva Cap.Inh*) 1 cap INH DAILY [facility] Last Admin: 04/08/19 07:21 Dose: 1 cap Vital Signs - 8 hr 04/08/19 04/08/19 04/08/19 02:46 02:51 06:36 Temperature 98.4 F 97.6 F Pulse Rate 58 82 58 Respiratory 18 20 20 Rate Blood Pressure 137/61 150/56 (mmHg) O2 Sat by Pulse 97 92 100 Oximetry 04/08/19 07:24 Temperature Pulse Rate 62 Respiratory 18 Rate Blood Pressure (mmHg) O2 Sat by Pulse 99 Oximetry Oxygen Devices in Use Now: Nasal Cannula - 5 liters, High Flow Nasal Cannula Appearance: Elderly morbid obese gentleman sitting up in bed in NAD Eyes: No Scleral Icterus Ears/Nose/Mouth/Throat: Mucous Membranes Moist Neck: Trachea Midline Respiratory: Symmetrical Chest Expansion and Respiratory Effort, - - BS+ bilaterally with diffuse wheezing and rhonchi Cardiovascular: RRR - Normal S1 and S2 Abdominal: NL Sounds; No Tenderness; No Distention - obese Extremities: No Edema Neurological: Alert and Oriented x 3, NL Muscle Strength and Tone Result Diagrams: 04/06/19 06:13 04/07/19 05:51 Assess/Plan/Problems-Billing Assessment: Mr Cruz is a 69yo M with PMH of severe COPD, on 3L NC baseline, HFpEF, HTN, HLD, CAD, hx of EtOH use d/o, anxiety and depression who was admitted for hypoxic resp failure requring vapotherm, thought to be from COPD exacerbation and PNA, improving slowly. - Patient Problems (1) Acute respiratory failure with hypoxia Comment: - Secondary to COPD exacerbation and possible underlying PNA - Continue supplemental O2. (2) COPD (chronic obstructive pulmonary disease) Comment: - With exacerbation - last day of Ceftriaxone today, but still with significant dyspnea. - Continue bronchodilators, IV and inhaled steroids. - CTA chest was negative for PE, but shows possible lingular mass - Pulm consult requested. (3) CHF (congestive heart failure) Comment: - HFpEF - not compliant with diuretics. - Change Furosemide to IV and d/c Aldactone. - Monitor daily weights. (4) DVT prophylaxis Comment: - SQ heparin. (5) Patient is full code Status and Disposition: Inpatient.
[2019-04-08] MEDS: Aspirin 81 mg CHEW TAB* 81 MG TAB.CHEW PO SCH (10:34)
[2019-04-08] MEDS: Nicotine PATCH 14 MG/24 HR* PATCH TRANSDERM SCH (10:35)
[2019-04-08] MEDS: Sertraline* 100 MG TAB PO SCH (10:35)
[2019-04-08] MEDS: Tamsulosin CAP* 0.4 MG PO SCH (10:35)
[2019-04-08] MEDS: Carvedilol TAB* 3.125 MG PO SCH ×2 (10:35→22:49)
[2019-04-08] MEDS: Lisinopril TAB* 10 MG PO SCH (10:35)
[2019-04-08] MEDS: Furosemide TAB* 40 MG PO SCH (10:35)
[2019-04-08] MEDS ORDERED: Iodixanol* (CONTRAST) 320 MG/ML 100 ML SDV IV ONE (11:23)
[2019-04-08] MEDS: cefTRIAXone(*) 1 GM in NS 0.9% 50 ML* 50 ML IVPB SCH (15:49)
[2019-04-08] MEDS: Spironolactone TAB* 25 MG PO SCH (16:41)
[2019-04-08] MEDS: Melatonin 3 MG TAB PO PRN (22:17)
[2019-04-08] MEDS: hydrOXYzine HCL TAB* 25 MG PO PRN (22:49)
[2019-04-08] MEDS: Nicotine Patch Removal NOTE FOLLOW UP SCH (23:02)
[2019-04-08] MEDS: Nicotine* 2MG (FRUIT FLAVOR) GUM PO PRN (23:14)
[2019-04-09] MEDS: Albuterol/Ipratropium NEB.SOL* Albuterol 2.5 MG/Ipratropium 0.5 MG 3 ML INH SCH ×4 (01:32→19:50)
[2019-04-09] MEDS: methylPREDNISolone 125 MG* 2 ML VIAL IV SCH ×3 (02:42→17:47)
[2019-04-09] MEDS: Levothyroxine TAB* 125 MCG TAB PO SCH (06:20)
[2019-04-09] MEDS: Heparin VIAL(*) 5000 UNITS/ML VIAL (FIVE THOUSAND) SUBCUT SCH ×4 (06:22→20:59)
[2019-04-09 06:46] LABS: Calcium 8.9 mg/dL (8.6-10.3)
[2019-04-09 06:51] LABS: BUN/Creatinine Ratio 39.1 (8-20); EGFR African American 149.2 (>60); EGFR Non-African American 123.3 (>60)
[2019-04-09 06:55] LABS: Potassium 5.2 mmol/L (3.5-5.0)
[2019-04-09] MEDS: Tiotropium CAP.INH* CAP.INH/18 MCG (USE ORDER SET !) INH SCH (07:27)
[2019-04-09] MEDS: Mometasone/Formoter 200/5 MDI INH SCH ×2 (07:28→19:50)
[2019-04-09] MEDS: Nicotine PATCH 14 MG/24 HR* PATCH TRANSDERM SCH (09:44)
[2019-04-09] MEDS: Furosemide TAB* 40 MG PO SCH (09:46)
[2019-04-09] MEDS: Carvedilol TAB* 3.125 MG PO SCH ×2 (09:46→20:57)
[2019-04-09] MEDS: Lisinopril TAB* 10 MG PO SCH (09:46)
[2019-04-09] MEDS: Aspirin 81 mg CHEW TAB* 81 MG TAB.CHEW PO SCH (09:46)
[2019-04-09] MEDS: Tamsulosin CAP* 0.4 MG PO SCH (09:47)
[2019-04-09] MEDS: Sertraline* 100 MG TAB PO SCH (09:47)
--- NOTE | 2019-04-09 11:01 | PN ---
Subjective Date of Service: 04/09/19 Interval History: HOSPITALIST PROGRESS NOTE Patient seen and examined at bedside. Care reviewed and d/w Phuong oRdrigues RN. He feels a little better today. A little improvement every day. Down to 4 liters of O2, able to ambulate to the bathroom and back, but dyspneic on exertion. Family History: Unchanged from Admission Social History: Unchanged from Admission Past Medical History: Unchanged from Admission Objective Active Medications: Acetaminophen (Tylenol Tab*) 650 mg PO Q4H PRN PRN Reason: FEVER/PAIN Last Admin: 04/08/19 04:42 Dose: 650 mg Albuterol/Ipratropium (Duoneb (Albuterol 2.5 Mg/Ipratropium 0.5 Mg)) 1 neb INH Q2H PRN PRN Reason: SOB/WHEEZING Last Admin: 04/07/19 11:46 Dose: 1 neb Albuterol/Ipratropium (Duoneb (Albuterol 2.5 Mg/Ipratropium 0.5 Mg)) 1 neb INH Q6H [facility] Last Admin: 04/09/19 07:27 Dose: 1 neb Aspirin (Aspirin 81 Mg Chew Tab*) 81 mg PO DAILY [facility] Last Admin: 04/09/19 09:46 Dose: 81 mg Benzonatate (Tessalon Cap*) 100 mg PO BID PRN PRN Reason: COUGH Last Admin: 04/05/19 21:19 Dose: 100 mg Carvedilol (Coreg Tab*) 3.125 mg PO BID [facility] Last Admin: 04/09/19 09:46 Dose: 3.125 mg Furosemide (Lasix Tab*) 40 mg PO DAILY [facility] Last Admin: 04/09/19 09:46 Dose: 40 mg Heparin Sodium (Porcine) (Heparin Vial(*)) 5,000 units SUBCUT Q8HR [facility] Last Admin: 04/09/19 06:22 Dose: Not Given Hydroxyzine HCl (Atarax Tab*) 25 mg PO Q4H PRN PRN Reason: ANXIETY Last Admin: 04/08/19 22:49 Dose: 25 mg Levothyroxine Sodium (Synthroid Tab*) 125 mcg PO DAILY@0600 [facility] Last Admin: 04/09/19 06:20 Dose: 125 mcg Lisinopril (Prinivil Tab*) 10 mg PO DAILY [facility] Last Admin: 04/09/19 09:46 Dose: 10 mg Melatonin (Melatonin) 3 mg PO BEDTIME PRN PRN Reason: SLEEP Last Admin: 04/08/19 22:17 Dose: 3 mg Methylprednisolone Sodium Succinate (Solu-Medrol 125mg *) 60 mg IV Q8H [facility] Last Admin: 04/09/19 09:47 Dose: 60 mg Mometasone Furoate/Formoterol Fumar (Dulera 200/5 Mdi*) 2 puff INH BID [facility] Last Admin: 04/09/19 07:28 Dose: 2 puff Nicotine (Nicotine Patch 14 Mg/24 Hr*) 1 patch TRANSDERM DAILY [facility] Last Admin: 04/09/19 09:44 Dose: 1 patch Nicotine Polacrilex (Nicotine Gum*) 2 mg PO Q2H PRN PRN Reason: CRAVING Last Admin: 04/08/19 23:14 Dose: 2 mg Pharmacy Profile Note (Nicotine Patch Removal Note*) 1 note FOLLOW UP 2100 [facility] Last Admin: 04/08/19 23:02 Dose: Not Given Sertraline HCl (Zoloft*) 100 mg PO DAILY [facility] Last Admin: 04/09/19 09:47 Dose: 100 mg Tamsulosin HCl (Flomax Cap*) 0.4 mg PO DAILY [facility] Last Admin: 04/09/19 09:47 Dose: 0.4 mg Throat Lozenges (Chloraseptic Vijay*) 1 vijay PO Q6H PRN PRN Reason: SORE THROAT Last Admin: 04/03/19 20:27 Dose: 1 vijay Tiotropium [place] (Spiriva Cap.Inh*) 1 cap INH DAILY [facility] Last Admin: 04/09/19 07:27 Dose: 1 cap Vital Signs - 8 hr 04/09/19 04/09/19 04/09/19 03:35 07:32 07:34 Temperature 98 F Pulse Rate 71 68 68 Respiratory 20 16 16 Rate Blood Pressure 139/50 (mmHg) O2 Sat by Pulse 98 94 94 Oximetry 04/09/19 10:46 Temperature Pulse Rate Respiratory 22 Rate Blood Pressure (mmHg) O2 Sat by Pulse Oximetry Oxygen Devices in Use Now: Nasal Cannula - 4 liter Appearance: Pleasant obese gentleman sitting up in bed in NAD. Eyes: No Scleral Icterus Ears/Nose/Mouth/Throat: Mucous Membranes Moist Neck: Trachea Midline Respiratory: Symmetrical Chest Expansion and Respiratory Effort, - - BS+ bilaterally, scattered wheezes L>R Cardiovascular: RRR - Normal S1 and S2 Extremities: No Edema Neurological: Alert and Oriented x 3, NL Muscle Strength and Tone Result Diagrams: 04/06/19 06:13 04/09/19 06:15 Assess/Plan/Problems-Billing Assessment: Mr Cruz is a 69yo M with PMH of severe COPD, on 3L [place] baseline, HFpEF, HTN, HLD, CAD, hx of EtOH use d/o, anxiety and depression who was admitted for hypoxic resp failure requring vapotherm, thought to be from COPD exacerbation and PNA, improving slowly. - Patient Problems (1) Acute respiratory failure with hypoxia Comment: - Secondary to COPD exacerbation and possible underlying PNA - Continue supplemental O2. (2) COPD (chronic obstructive pulmonary disease) Comment: - With exacerbation - last day of Ceftriaxone today, but still with significant dyspnea. - Continue bronchodilators, IV and inhaled steroids. - CTA chest was negative for PE, but shows possible lingular mass - Pulm consult requested. (3) CHF (congestive heart failure) Comment: - HFpEF - not compliant with diuretics. - Resume Furosemide PO. - Aldactone discontinued 04/08/19. - Monitor daily weights. (4) Hyperkalemia Comment: - Mild hyperkalemia. - Aldactone d/c 04/08. Will continue Lisinopril for now and monitor. (5) DVT prophylaxis Comment: - SQ heparin. (6) Patient is full code Status and Disposition: Inpatient. Anticipate d/c 04/11/19.
--- NOTE | 2019-04-09 16:16 | CONS ---
PULMONARY CONSULTATION REPORT: DATE OF CONSULT: 04/09/19 CONSULTATION REQUESTED BY: Dr. Lachelle Cespedes. REASON FOR CONSULTATION: Evaluation of abnormal CT chest and shortness of breath. HISTORY OF PRESENT ILLNESS: The patient is a 69-year-old obese male with history of COPD on home O2 at 3 L, history of CHF, significant smoking history of 60-pack- years, history of recurrent bronchitis in the past. The patient presents for evaluation of worsening shortness of breath. The patient developed worsening shortness of breath, gradually getting worse prior to admission. He also had cough, which was mostly dry in nature. The shortness of breath was getting worse and he decided to come in to the ED for further evaluation. The patient was noted to be having acute on chronic hypoxemic respiratory failure when he presented to [facility] on 03/29/19 and was started on Vapotherm. He was sent in for further evaluation. The patient continues to have significant shortness of breath and hypoxemia in spite of being being treated optimally for acute COPD exacerbation. He is currently on high dose steroids, completed antibiotics, he is also receiving bronchodilators. The patient reports inability to expectorate the phlegm. The patient denies any fevers. He has chronic history of night sweats. The patient reports compliance with his nebulizers and inhalers at home. The patient denies any seek contacts or recent travel. The patient denies URI symptoms. The patient denies history of chronic cough. The patent reports history of snoring and witnessed apneas by his ex-. He never had sleep study or any further evaluation. The patient denies allergies or GERD symptoms. PAST MEDICAL HISTORY: 1. Morbid obesity. 2. COPD with multiple exacerbations in the past, last one in [facility] in August 2018. 3. Hypertension. 4. Dyslipidemia. 5. Coronary artery disease. 6. Hypothyroidism. 7. Congestive heart failure. 8. Alcohol abuse. 9. Anxiety and depression. 10. Restless legs syndrome. 11. Bipolar disorder. 12. Chronic constipation. 13. History of pleural effusions, chronic. 14. History of pneumonia in the past. PAST SURGICAL HISTORY: Cardiac bypass, left foot reconstruction, status post left shoulder surgery, rotator cuff repair, left wrist fracture versus status post open reduction and internal fixation, right inguinal hernia repair. MEDICATIONS AT HOME: 1. Tylenol. 2. Albuterol nebulizer. 3. Aspirin. 4. Atorvastatin. 5. Coreg. 6. Vitamin B12. 7. Benadryl. 8. Ferrous sulfate. 9. Breo. 10. Folic acid. 11. Furosemide. 12. Guaifenesin. 13. DuoNeb. 14. Levothyroxine. 15. Lisinopril. 16. Ativan. 17. Nystatin. 18. Endocet. 19. Potassium chloride. 20. Quetiapine. 21. Ropinirole. 22. Sertraline. 23. Spironolactone. 24. Thiamine. ALLERGIES: LEVAQUIN and LATEX. FAMILY HISTORY: CAD. SOCIAL HISTORY: A 65-mbmp-ianq smoking history, occasional alcohol intake. He lives at [place]. He is a retired milling machinist. REVIEW OF SYSTEMS: All 14-systems reviewed and as per HPI. PHYSICAL EXAM: Obese male in bed, in no apparent distress, starting to wheeze with minimal movement. Vital Signs: Temperature 98.6, pulse 67 beats per minute, respiratory rate 16 per minute, O2 sat 97% on 3.5 L, and blood pressure 124/46. HEENT: Pupils equal, reactive to light. Mucous membranes moist. Lungs : Diminished entry bilaterally and significant wheeze on auscultation. Cardiovascular: S1 and S2 present, regular. No murmur, gallops, or rubs. Abdomen: Obese. Bowel sounds present, nontender, nondistended. Extremities: Normal range of motion. Skin: No rash or bruise. Neuro: No focal deficits. DIAGNOSTIC STUDIES/LAB DATA: WBC count 7.2, hemoglobin 12.8, hematocrit 38, platelet count 141. Sodium 132, potassium 5.2, chloride 94, bicarb 34, BUN 25, creatinine 0.64. CT of the chest performed on 04/08/19, was personally reviewed by me - evidence of patchy airspace opacities, evidence of mild emphysematous changes, paraseptal in nature. Evidence of air space opacity at left lung base and also air space opacity, which is rounded and area of elongation across the lingular surface of the left lung. No significant mediastinal and hilar adenopathy noted. IMPRESSION AND RECOMMENDATIONS: 1. Morbidly obese male with significant smoking history and admitted with worsening shortness of breath, being treated for acute execration. 2. The patient with no significant improvement since admission. Reports feeling slightly better. He is still wheezing on auscultation. He is receiving good dose of steroids, which I would not taper yet. He is started on nicotine supplementation. He is having difficulty expectorating the phlegm, would recommend MetaNeb and flutter device. 3. He has history of congestive heart failure. He is on diuretics, however, with no acute exacerbation at this time. 4. The patient also with concerns with sleep apnea. Will need sleep study as outpatient. Importance of smoking cessation was discussed with the patient. 5. Other issue is the finding of air space opacity in the left lung, unclear if it is atelectasis or mucus plugging. To me, it more likely is from mucous plugging. We would focus on airway dilatation on mobilization of mucus. We will consider repeat CT in 6 weeks. If persistent opacity then he will need biopsy. 6. Above recommendations were discussed in detail with the patient and he is agreeable. Thank you for allowing me to particulate in the care of your patient. Will follow with you. [id number]/[facility] #: [id number] LUCIA
[2019-04-09] MEDS: Nicotine* 2MG (FRUIT FLAVOR) GUM PO PRN (16:20)
[2019-04-09] MEDS: hydrOXYzine HCL TAB* 25 MG PO PRN ×2 (17:47→23:28)
[2019-04-09] MEDS: Nicotine Patch Removal NOTE FOLLOW UP SCH (20:59)
[2019-04-09] MEDS: Melatonin 3 MG TAB PO PRN (23:28)
[2019-04-10] MEDS: Albuterol/Ipratropium NEB.SOL* Albuterol 2.5 MG/Ipratropium 0.5 MG 3 ML INH SCH ×4 (01:02→20:08)
[2019-04-10] MEDS: methylPREDNISolone 125 MG* 2 ML VIAL IV SCH ×3 (02:12→18:04)
[2019-04-10] MEDS: Heparin VIAL(*) 5000 UNITS/ML VIAL (FIVE THOUSAND) SUBCUT SCH ×3 (05:43→21:08)
[2019-04-10] MEDS: Levothyroxine TAB* 125 MCG TAB PO SCH (05:43)
[2019-04-10] MEDS: oxyCODONE/Acetamin 5/325 MG* TAB PO PRN ×2 (06:14→13:34)
[2019-04-10 06:56] LABS: BUN/Creatinine Ratio 46.6 (8-20); Calcium 8.7 mg/dL (8.6-10.3); EGFR African American 167.1 (>60); EGFR Non-African American 138.1 (>60); Potassium 4.8 mmol/L (3.5-5.0)
[2019-04-10] MEDS ORDERED: diPHENhydraMINE PO* 25 MG PO PRN (07:38)
--- NOTE | 2019-04-10 08:04 | PN ---
Subjective Date of Service: 04/10/19 Interval History: HOSPITALIST PROGRESS NOTE Patient seen and examined at bedside. Care reviewed and d/w Phuong Rodrigues RN. He c/o dyspnea with exertion, but more comfortable at rest. Family History: Unchanged from Admission Social History: Unchanged from Admission Past Medical History: Unchanged from Admission Objective Active Medications: Acetaminophen (Tylenol Tab*) 650 mg PO Q4H PRN PRN Reason: FEVER/PAIN Last Admin: 04/08/19 04:42 Dose: 650 mg Albuterol/Ipratropium (Duoneb (Albuterol 2.5 Mg/Ipratropium 0.5 Mg)) 1 neb INH Q2H PRN PRN Reason: SOB/WHEEZING Last Admin: 04/07/19 11:46 Dose: 1 neb Albuterol/Ipratropium (Duoneb (Albuterol 2.5 Mg/Ipratropium 0.5 Mg)) 1 neb INH Q6H YOU Last Admin: 04/10/19 01:02 Dose: Not Given Aspirin (Aspirin 81 Mg Chew Tab*) 81 mg PO DAILY [facility] Last Admin: 04/09/19 09:46 Dose: 81 mg Atorvastatin Calcium (Lipitor*) 40 mg PO 2100 [facility] Benzonatate (Tessalon Cap*) 100 mg PO BID PRN PRN Reason: COUGH Last Admin: 04/05/19 21:19 Dose: 100 mg Carvedilol (Coreg Tab*) 3.125 mg PO BID [facility] Last Admin: 04/09/19 20:57 Dose: 3.125 mg Cyanocobalamin (Vitamin B12 Tab*) 500 mcg PO DAILY [facility] Diphenhydramine HCl (Benadryl Po*) 25 mg PO BEDTIME PRN PRN Reason: SLEEP Ferrous Sulfate (Ferrous Sulfate Tab*) 325 mg PO DAILY [facility] Folic Acid (Folvite Tab*) 1 mg PO DAILY [facility] Furosemide (Lasix Tab*) 20 mg PO BID [facility] Heparin Sodium (Porcine) (Heparin Vial(*)) 5,000 units SUBCUT Q8HR [facility] Last Admin: 04/10/19 05:43 Dose: Not Given Hydroxyzine HCl (Atarax Tab*) 25 mg PO Q4H PRN PRN Reason: ANXIETY Last Admin: 04/09/19 23:28 Dose: 25 mg Levothyroxine Sodium (Synthroid Tab*) 125 mcg PO DAILY@0600 [facility] Last Admin: 04/10/19 05:43 Dose: 125 mcg Lisinopril (Prinivil Tab*) 10 mg PO DAILY [facility] Last Admin: 04/09/19 09:46 Dose: 10 mg Melatonin (Melatonin) 3 mg PO BEDTIME PRN PRN Reason: SLEEP Last Admin: 04/09/19 23:28 Dose: 3 mg Methylprednisolone Sodium Succinate (Solu-Medrol 125mg *) 60 mg IV Q8H [facility] Last Admin: 04/10/19 02:12 Dose: 60 mg Mometasone Furoate/Formoterol Fumar (Dulera 200/5 Mdi*) 2 puff INH BID [facility] Last Admin: 04/09/19 19:50 Dose: 2 puff Nicotine (Nicotine Patch 14 Mg/24 Hr*) 1 patch TRANSDERM DAILY [facility] Last Admin: 04/09/19 09:44 Dose: 1 patch Nicotine Polacrilex (Nicotine Gum*) 2 mg PO Q2H PRN PRN Reason: CRAVING Last Admin: 04/09/19 16:20 Dose: 2 mg Oxycodone/Acetaminophen (Percocet 5/325 Tab*) 1 tab PO Q6H PRN PRN Reason: PAIN Last Admin: 04/10/19 06:14 Dose: 1 tab Pharmacy Profile Note (Nicotine Patch Removal Note*) 1 note FOLLOW UP 2100 [facility] Last Admin: 04/09/19 20:59 Dose: Not Given Sertraline HCl (Zoloft*) 100 mg PO DAILY [facility] Last Admin: 04/09/19 09:47 Dose: 100 mg Tamsulosin HCl (Flomax Cap*) 0.4 mg PO DAILY [facility] Last Admin: 04/09/19 09:47 Dose: 0.4 mg Throat Lozenges (Chloraseptic Vijay*) 1 vijay PO Q6H PRN PRN Reason: SORE THROAT Last Admin: 04/03/19 20:27 Dose: 1 vijay Tiotropium [place] (Spiriva Cap.Inh*) 1 cap INH DAILY [facility] Last Admin: 04/09/19 07:27 Dose: 1 cap Vital Signs - 8 hr 04/10/19 04/10/19 03:50 06:14 Temperature 97.2 F Pulse Rate 66 Respiratory 20 22 Rate Blood Pressure 132/42 (mmHg) O2 Sat by Pulse 95 Oximetry Oxygen Devices in Use Now: Nasal Cannula - 3 liters Appearance: Pleasant obese gentleman sitting up in bed in NAD. Eyes: No Scleral Icterus Ears/Nose/Mouth/Throat: Mucous Membranes Moist Neck: Trachea Midline Respiratory: Symmetrical Chest Expansion and Respiratory Effort, - - BS+ bilaterally with bilateral wheezing, L>R Cardiovascular: RRR - Normal S1 and S2 Abdominal: NL Sounds; No Tenderness; No Distention - obese Neurological: Alert and Oriented x 3, NL Muscle Strength and Tone Result Diagrams: 04/06/19 06:13 04/10/19 06:23 Assess/Plan/Problems-Billing Assessment: Mr Cruz is a 69yo M with PMH of severe COPD, on 3L NC baseline, HFpEF, HTN, HLD, CAD, hx of EtOH use d/o, anxiety and depression who was admitted for hypoxic resp failure requring vapotherm, thought to be from COPD exacerbation and PNA, improving slowly. - Patient Problems (1) Acute respiratory failure with hypoxia Comment: - Secondary to COPD exacerbation and possible underlying PNA - Continue supplemental O2. (2) COPD (chronic obstructive pulmonary disease) Comment: - With exacerbation - completed Ceftriaxone course, but still with significant dyspnea. - Continue bronchodilators, IV and inhaled steroids. - CTA chest was negative for PE, but shows possible lingular mass - Pulm consult requested. (3) CHF (congestive heart failure) Comment: - HFpEF - not compliant with diuretics. - Resume Furosemide PO. - Aldactone discontinued 04/08/19. - Monitor daily weights. (4) Hyperkalemia Comment: - Mild hyperkalemia. - Aldactone d/c 04/08. Will continue Lisinopril for now and monitor. (5) DVT prophylaxis Comment: - SQ heparin/SCDs. (6) Patient is full code Status and Disposition: Inpatient. Anticipate d/c 04/11/19, depending on Pulm opinion.
[2019-04-10] MEDS: Tiotropium CAP.INH* CAP.INH/18 MCG (USE ORDER SET !) INH SCH (08:18)
[2019-04-10] MEDS: Mometasone/Formoter 200/5 MDI INH SCH ×2 (08:18→20:08)
[2019-04-10] MEDS: Cyanocobalamin TAB* 500 MCG PO SCH (09:49)
[2019-04-10] MEDS: Ferrous Sulfate TAB* 325 MG PO SCH (09:49)
[2019-04-10] MEDS: Sertraline* 100 MG TAB PO SCH (09:49)
[2019-04-10] MEDS: Furosemide TAB* 20 MG PO SCH ×2 (09:49→21:04)
[2019-04-10] MEDS: Aspirin 81 mg CHEW TAB* 81 MG TAB.CHEW PO SCH (09:49)
[2019-04-10] MEDS: Folic Acid TAB* 1 MG PO SCH (09:49)
[2019-04-10] MEDS: Lisinopril TAB* 10 MG PO SCH (09:49)
[2019-04-10] MEDS: Tamsulosin CAP* 0.4 MG PO SCH (09:49)
[2019-04-10] MEDS: Carvedilol TAB* 3.125 MG PO SCH ×2 (09:49→21:04)
[2019-04-10] MEDS: Nicotine PATCH 14 MG/24 HR* PATCH TRANSDERM SCH ×2 (09:51→19:54)
[2019-04-10] MEDS: Nicotine* 2MG (FRUIT FLAVOR) GUM PO PRN (19:54)
[2019-04-10] MEDS: Atorvastatin* 40 MG TAB PO SCH (21:04)
[2019-04-10] MEDS: hydrOXYzine HCL TAB* 25 MG PO PRN (21:04)
[2019-04-10] MEDS: Melatonin 3 MG TAB PO PRN (21:04)
[2019-04-10] MEDS: Nicotine Patch Removal NOTE FOLLOW UP SCH (21:07)
[2019-04-11] MEDS: Albuterol/Ipratropium NEB.SOL* Albuterol 2.5 MG/Ipratropium 0.5 MG 3 ML INH SCH ×4 (01:06→19:37)
[2019-04-11] MEDS: methylPREDNISolone 125 MG* 2 ML VIAL IV SCH ×3 (01:25→11:55)
[2019-04-11] MEDS: Levothyroxine TAB* 125 MCG TAB PO SCH (05:51)
[2019-04-11] MEDS: Heparin VIAL(*) 5000 UNITS/ML VIAL (FIVE THOUSAND) SUBCUT SCH ×3 (05:51→21:01)
[2019-04-11 07:06] LABS: ABS Lymphocytes 0.5 10^3/ul (1.0-4.8); ABS Monocytes 0.5 10^3/ul (0-0.8); ABS Neutrophils 11.1 10^3/ul (1.5-7.7); Hematocrit 40 % (42-52); Hemoglobin 13.2 g/dL (14.0-18.0); Mean Corpuscular HGB Conc 33 g/dL (31-36); Mean Corpuscular Hemoglobin 32 pg (27-31); Mean Corpuscular Volume 97 fL (80-94); Mean Platelet Volume 6.9 fL (7.4-10.4); Nucleated Red Blood Cells % 0.1; Platelet Count 178 10^3/uL (150-450); Red Blood Count 4.07 10^6 /uL (4.18-5.48); Red Cell Distribution Width 16 % (10.5-15); White Blood Count 12.1 10^3/uL (3.5-10.8)
[2019-04-11 07:22] LABS: BUN/Creatinine Ratio 41.5 (8-20); Calcium 8.8 mg/dL (8.6-10.3); EGFR African American 146.5 (>60); EGFR Non-African American 121.1 (>60); Potassium 4.8 mmol/L (3.5-5.0)
[2019-04-11] MEDS: Mometasone/Formoter 200/5 MDI INH SCH ×2 (07:57→19:37)
[2019-04-11] MEDS: Tiotropium CAP.INH* CAP.INH/18 MCG (USE ORDER SET !) INH SCH (07:57)
[2019-04-11] MEDS: Lisinopril TAB* 10 MG PO SCH (08:16)
[2019-04-11] MEDS: Aspirin 81 mg CHEW TAB* 81 MG TAB.CHEW PO SCH (08:16)
[2019-04-11] MEDS: Cyanocobalamin TAB* 500 MCG PO SCH (08:16)
[2019-04-11] MEDS: Tamsulosin CAP* 0.4 MG PO SCH (08:16)
[2019-04-11] MEDS: Carvedilol TAB* 3.125 MG PO SCH ×2 (08:16→21:00)
[2019-04-11] MEDS: Folic Acid TAB* 1 MG PO SCH (08:16)
[2019-04-11] MEDS: Ferrous Sulfate TAB* 325 MG PO SCH (08:16)
[2019-04-11] MEDS: Sertraline* 100 MG TAB PO SCH (08:17)
[2019-04-11] MEDS: Furosemide TAB* 20 MG PO SCH ×2 (08:17→21:00)
[2019-04-11] MEDS: oxyCODONE/Acetamin 5/325 MG* TAB PO PRN ×3 (08:17→21:01)
[2019-04-11] MEDS: Nicotine PATCH 14 MG/24 HR* PATCH TRANSDERM SCH (08:17)
--- NOTE | 2019-04-11 10:53 | PN ---
Subjective Date of Service: 04/11/19 Interval History: Pt is feeling ok. He states his breathing is very slowly improving. He is more SOB now than he was because he was just up out of bed. He still has a moist cough but is unable to bring up any sputum. He never received the flutter valve that was ordered 04/09. He has not had a BM in several days but thinks he will today. Family History: Unchanged from Admission Social History: Unchanged from Admission Past Medical History: Unchanged from Admission Objective Active Medications: Acetaminophen (Tylenol Tab*) 650 mg PO Q4H PRN PRN Reason: FEVER/PAIN Last Admin: 04/08/19 04:42 Dose: 650 mg Albuterol/Ipratropium (Duoneb (Albuterol 2.5 Mg/Ipratropium 0.5 Mg)) 1 neb INH Q2H PRN PRN Reason: SOB/WHEEZING Last Admin: 04/07/19 11:46 Dose: 1 neb Albuterol/Ipratropium (Duoneb (Albuterol 2.5 Mg/Ipratropium 0.5 Mg)) 1 neb INH [id number] AWAKE [facility] Aspirin (Aspirin 81 Mg Chew Tab*) 81 mg PO DAILY [facility] Last Admin: 04/11/19 08:16 Dose: 81 mg Atorvastatin Calcium (Lipitor*) 40 mg PO 2100 [facility] Last Admin: 04/10/19 21:04 Dose: 40 mg Benzonatate (Tessalon Cap*) 100 mg PO BID PRN PRN Reason: COUGH Last Admin: 04/05/19 21:19 Dose: 100 mg Carvedilol (Coreg Tab*) 3.125 mg PO BID [facility] Last Admin: 04/11/19 08:16 Dose: 3.125 mg Cyanocobalamin (Vitamin B12 Tab*) 500 mcg PO DAILY [facility] Last Admin: 04/11/19 08:16 Dose: 500 mcg Diphenhydramine HCl (Benadryl Po*) 25 mg PO BEDTIME PRN PRN Reason: SLEEP Last Admin: 04/10/19 21:04 Dose: 25 mg Ferrous Sulfate (Ferrous Sulfate Tab*) 325 mg PO DAILY [facility] Last Admin: 04/11/19 08:16 Dose: 325 mg Folic Acid (Folvite Tab*) 1 mg PO DAILY [facility] Last Admin: 04/11/19 08:16 Dose: 1 mg Furosemide (Lasix Tab*) 20 mg PO BID [facility] Last Admin: 04/11/19 08:17 Dose: 20 mg Guaifenesin (Mucinex*) 1,200 mg PO BID [facility] Heparin Sodium (Porcine) (Heparin Vial(*)) 5,000 units SUBCUT Q8HR [facility] Last Admin: 04/11/19 05:51 Dose: Not Given Hydroxyzine HCl (Atarax Tab*) 25 mg PO Q4H PRN PRN Reason: ANXIETY Last Admin: 04/10/19 21:04 Dose: 25 mg Levothyroxine Sodium (Synthroid Tab*) 125 mcg PO DAILY@0600 [facility] Last Admin: 04/11/19 05:51 Dose: 125 mcg Lisinopril (Prinivil Tab*) 10 mg PO DAILY [facility] Last Admin: 04/11/19 08:16 Dose: 10 mg Melatonin (Melatonin) 3 mg PO BEDTIME PRN PRN Reason: SLEEP Last Admin: 04/10/19 21:04 Dose: 3 mg Methylprednisolone Sodium Succinate (Solu-Medrol 125mg *) 60 mg IV Q8H [facility] Last Admin: 04/11/19 01:25 Dose: 60 mg Mometasone Furoate/Formoterol Fumar (Dulera 200/5 Mdi*) 2 puff INH BID [facility] Last Admin: 04/11/19 07:57 Dose: 2 puff Nicotine (Nicotine Patch 14 Mg/24 Hr*) 1 patch TRANSDERM DAILY [facility] Last Admin: 04/11/19 08:17 Dose: 1 patch Nicotine Polacrilex (Nicotine Gum*) 2 mg PO Q2H PRN PRN Reason: CRAVING Last Admin: 04/10/19 19:54 Dose: 2 mg Oxycodone/Acetaminophen (Percocet 5/325 Tab*) 1 tab PO Q6H PRN PRN Reason: PAIN Last Admin: 04/11/19 08:17 Dose: 1 tab Pharmacy Profile Note (Nicotine Patch Removal Note*) 1 note FOLLOW UP 2100 [facility] Last Admin: 04/10/19 21:07 Dose: Not Given Sertraline HCl (Zoloft*) 100 mg PO DAILY [facility] Last Admin: 04/11/19 08:17 Dose: 100 mg Tamsulosin HCl (Flomax Cap*) 0.4 mg PO DAILY [facility] Last Admin: 04/11/19 08:16 Dose: 0.4 mg Throat Lozenges (Chloraseptic Vijay*) 1 vijay PO Q6H PRN PRN Reason: SORE THROAT Last Admin: 04/03/19 20:27 Dose: 1 vijay Tiotropium [place] (Spiriva Cap.Inh*) 1 cap INH DAILY [facility] Last Admin: 04/11/19 07:57 Dose: 1 cap Vital Signs - 8 hr 04/11/19 04/11/19 04/11/19 03:15 07:58 08:09 Temperature 97.5 F 97.8 F Pulse Rate 62 61 68 Respiratory 18 18 18 Rate Blood Pressure 134/51 128/50 (mmHg) O2 Sat by Pulse 95 97 97 Oximetry 04/11/19 04/11/19 08:17 08:21 Temperature Pulse Rate Respiratory 18 18 Rate Blood Pressure (mmHg) O2 Sat by Pulse Oximetry Oxygen Devices in Use Now: Nasal Cannula Appearance: Elderly male sitting up in bed, NAD Eyes: No Scleral Icterus Ears/Nose/Mouth/Throat: Mucous Membranes Moist Respiratory: Symmetrical Chest Expansion and Respiratory Effort, - - diminished breath sounds in all lung chawla, pt with forced exhalation wheeze, otherwise no wheezing noted Cardiovascular: NL Sounds; No Murmurs; No JVD, RRR, No Edema Abdominal: NL Sounds; No Tenderness; No Distention Extremities: No Clubbing, Cyanosis Skin: No Nodules or Sclerosis Neurological: Alert and Oriented x 3 Result Diagrams: 04/11/19 06:57 04/11/19 06:50 Microbiology and Other Data: Microbiology 03/31/19 16:30 Nasal Screen MRSA (PCR) - Final Nasal Mrsa Not Detected Assess/Plan/Problems-Billing Mr Cruz is a 69yo M with PMH of severe COPD, on 3L NC baseline, HFpEF, HTN, HLD, CAD, hx of EtOH use d/o, anxiety and depression who was admitted for hypoxic resp failure requring vapotherm, thought to be from COPD exacerbation and PNA, improving slowly. - Patient Problems (1) Acute respiratory failure with hypoxia Current Visit: Yes Status: Acute Code(s): J96.01 - ACUTE RESPIRATORY FAILURE WITH HYPOXIA SNOMED Code(s): 68403892 Comment: O2 saturation good on his baseline 3L O2. (2) COPD (chronic obstructive pulmonary disease) Current Visit: Yes Status: Acute Code(s): J44.9 - CHRONIC OBSTRUCTIVE PULMONARY DISEASE, UNSPECIFIED SNOMED Code(s): 36105040 Comment: Pt with severe COPD at baseline. Perhaps exacerbated by pna- treated with ceftriaxone (completed full course). He continues to have significant dyspnea with any activity. Dr. Gonzales saw the patient and recommended metaneb and flutter valve. Continue solumedrol but decrease to 60mg IV q12hr from q8hr. (3) CHF (congestive heart failure) Current Visit: Yes Status: Acute Code(s): I50.9 - HEART FAILURE, UNSPECIFIED SNOMED Code(s): 85572609 Comment: Pt with preserved EF. No evidence of overt fluid overload. Will continue lasix 20mg po BID. (4) Anxiety Current Visit: Yes Status: Acute Code(s): F41.9 - ANXIETY DISORDER, UNSPECIFIED SNOMED Code(s): 46302162 Comment: Sertraline increased to 100mg daily. PRN hydroxyzine ordered- he has been using it typically 1-2x/day. (5) DVT prophylaxis Current Visit: Yes Status: Acute Code(s): Z29.9 - ENCOUNTER FOR PROPHYLACTIC MEASURES, UNSPECIFIED SNOMED Code(s): 086378979 Comment: - SQ heparin/SCDs. (6) Patient is full code Current Visit: Yes Status: Acute Code(s): Z78.9 - OTHER SPECIFIED HEALTH STATUS SNOMED Code(s): 265053893 (7) Tobacco abuse Current Visit: Yes Status: Acute Code(s): Z72.0 - TOBACCO USE SNOMED Code( s): 327764403 Comment: -nicotine patch -cessation counseling Status and Disposition: .
[2019-04-11] MEDS: guaiFENesin ER TAB 600 MG PO SCH ×2 (11:55→20:59)
[2019-04-11] MEDS: Nicotine* 2MG (FRUIT FLAVOR) GUM PO PRN (14:19)
--- NOTE | 2019-04-11 15:01 | PN ---
Progress Note - Progress Note Date of Service: 04/11/19 - Pulm f/u note Note: Pt seen and examined at bedside. Pt reports feeling better. Still having significant dyspnea with movement. Pt also reports having trouble expectorating phlegh. He was not able to receive metanebs. He just received flutter device today Active Medications Generic Name Dose Route Start Last Admin Trade Name Freq PRN Reason Stop Dose Admin Acetaminophen 650 mg 03/31/19 14:26 04/08/19 04:42 Tylenol Tab* PO 650 mg Q4H PRN Administration FEVER/PAIN Albuterol/Ipratropium 1 neb 04/02/19 10:11 04/07/19 11:46 Duoneb (Albuterol 2.5 Mg/Ipratropium 0.5 Mg) INH 1 neb Q2H PRN Administration SOB/WHEEZING Albuterol/Ipratropium 1 neb 04/11/19 13:00 04/11/19 13:28 Duoneb (Albuterol 2.5 Mg/Ipratropium 0.5 Mg) INH 1 neb [id number] AWAKE YOU Administration Aspirin 81 mg 04/01/19 09:00 04/11/19 08:16 Aspirin 81 Mg Chew Tab* PO 81 mg DAILY YOU Administration Atorvastatin Calcium 40 mg 04/10/19 21:00 04/10/19 21:04 Lipitor* PO 40 mg 2100 YOU Administration Benzonatate 100 mg 04/02/19 10:13 04/05/19 21:19 Tessalon Cap* PO 100 mg BID PRN Administration COUGH Carvedilol 3.125 mg 03/31/19 21:00 04/11/19 08:16 Coreg Tab* PO 3.125 mg BID YOU Administration Cyanocobalamin 500 mcg 04/10/19 09:00 04/11/19 08:16 Vitamin B12 Tab* PO 500 mcg DAILY YOU Administration Diphenhydramine HCl 25 mg 04/10/19 07:38 04/10/19 21:04 Benadryl Po* PO 25 mg BEDTIME PRN Administration SLEEP Ferrous Sulfate 325 mg 04/10/19 09:00 04/11/19 08:16 Ferrous Sulfate Tab* PO 325 mg DAILY YOU Administration Folic Acid 1 mg 04/10/19 09:00 04/11/19 08:16 Folvite Tab* PO 1 mg DAILY [facility] Administration Furosemide 20 mg 04/10/19 09:00 04/11/19 08:17 Lasix Tab* PO 20 mg BID YOU Administration Guaifenesin 1,200 mg 04/11/19 11:00 04/11/19 11:55 Mucinex* PO 1,200 mg BID YOU Administration Heparin Sodium (Porcine) 5,000 units 03/31/19 22:00 04/11/19 14:20 Heparin Vial(*) SUBCUT Not Given Q8HR [facility] Hydroxyzine HCl 25 mg 04/04/19 12:54 04/10/19 21:04 Atarax Tab* PO 25 mg Q4H PRN Administration ANXIETY Levothyroxine Sodium 125 mcg 04/01/19 06:00 04/11/19 05:51 Synthroid Tab* PO 125 mcg DAILY@0600 [facility] Administration Lisinopril 10 mg 04/01/19 09:00 04/11/19 08:16 Prinivil Tab* PO 10 mg DAILY YOU Administration Melatonin 3 mg 04/01/19 21:18 04/10/19 21:04 Melatonin PO 3 mg BEDTIME PRN Administration SLEEP Methylprednisolone Sodium Succinate 60 mg 04/11/19 12:00 04/11/19 11:55 Solu-Medrol 125mg * IV 60 mg Q12H YOU Administration Mometasone Furoate/Formoterol Fumar 2 puff 03/31/19 21:00 04/11/19 07:57 Dulera 200/5 Mdi* INH 2 puff BID YOU Administration Nicotine 1 patch 03/31/19 16:00 04/11/19 08:17 Nicotine Patch 14 Mg/24 Hr* TRANSDERM 1 patch DAILY [facility] Administration Nicotine Polacrilex 2 mg 04/03/19 20:11 04/11/19 14:19 Nicotine Gum* PO 2 mg Q2H PRN Administration CRAVING Oxycodone/Acetaminophen 1 tab 04/10/19 06:04 04/11/19 14:19 Percocet 5/325 Tab* PO 1 tab Q6H PRN Administration PAIN Pharmacy Profile Note 1 note 03/31/19 21:00 04/10/19 21:07 Nicotine Patch Removal Note* FOLLOW UP Not Given 2100 [facility] Sertraline HCl 100 mg 04/05/19 09:00 04/11/19 08:17 Zoloft* PO 100 mg DAILY [facility] Administration Tamsulosin HCl 0.4 mg 04/02/19 15:00 04/11/19 08:16 Flomax Cap* PO 0.4 mg DAILY [facility] Administration Throat Lozenges 1 vijay 04/02/19 10:14 04/03/19 20:27 Chloraseptic Vijay* PO 1 vijay Q6H PRN Administration SORE THROAT Tiotropium [place] 1 cap 04/01/19 09:00 04/11/19 07:57 Spiriva Cap.Inh* INH 1 cap DAILY YOU Administration Vital Signs Temp Pulse Resp BP Pulse Ox 98.8 F 97 18 111/47 20 04/11/19 11:15 04/11/19 13:31 04/11/19 14:19 04/11/19 11:15 04/11/19 13:31 Laboratory Results - last 24 hr 04/11/19 04/11/19 06:50 06:57 WBC 12.1 H RBC 4.07 L Hgb 13.2 L Hct 40 L MCV 97 H MCH 32 H MCHC 33 RDW 16 H Plt Count 178 MPV 6.9 L Neut % (Auto) 91.6 Lymph % (Auto) 4.0 [place] % (Auto) 4.0 Eos % (Auto) 0.0 Baso % (Auto) 0.4 Absolute Neuts (auto) 11.1 H Absolute Lymphs (auto) 0.5 L Absolute Monos (auto) 0.5 Absolute Eos (auto) 0.0 Absolute Basos (auto) 0.0 Absolute Nucleated RBC 0.0 Nucleated RBC % 0.1 Sodium 131 L Potassium 4.8 Chloride 90 L Carbon Dioxide 35 H Anion Gap 6 BUN 27 H Creatinine 0.65 L Est GFR ( Amer) 146.5 Est GFR (Non-Af Amer) 121.1 BUN/Creatinine Ratio 41.5 H Glucose 253 H Calcium 8.8 O/E: Pt in NAD HEENT: pERRLA Lungs: Diminished air entry, rhonchi+ CVS: S1, S2+ Abd: Obese, BS+ Ext: No edema Neuro: No focal deficits Skin: NO rash I/R: 69yo M with PMH of severe COPD, on 3L NC baseline, HFpEF, HTN, HLD, CAD, hx of EtOH use d/o, anxiety and depression who was admitted for hypoxic resp failure requring vapotherm, secondary to COPD exacerbation and PNA, improving slowly. Pt still with signficant wheezing on auscultation. He also sounds rhonchorus. He has not received metanebs. Discussed with RT Technique of flutter usage was discussed c/w nebs c/w steroids at 6omg q12hrs O2 requirement at baseline Pt with evidence of areas of rounded consolidation in left lung- Sec to mucus plugging Will need f/u imaging as out pt to ensure resolution DVT px
[2019-04-11] MEDS: Benzonatate CAP* 100 MG PO PRN (20:59)
[2019-04-11] MEDS: Atorvastatin* 40 MG TAB PO SCH (21:00)
[2019-04-11] MEDS: Melatonin 3 MG TAB PO PRN (21:01)
[2019-04-11] MEDS: Nicotine Patch Removal NOTE FOLLOW UP SCH (21:02)
[2019-04-12] MEDS: methylPREDNISolone 125 MG* 2 ML VIAL IV SCH ×2 (01:16→12:30)
[2019-04-12] MEDS: Albuterol/Ipratropium NEB.SOL* Albuterol 2.5 MG/Ipratropium 0.5 MG 3 ML INH SCH ×4 (01:17→14:09)
[2019-04-12] MEDS: oxyCODONE/Acetamin 5/325 MG* TAB PO PRN (04:07)
[2019-04-12] MEDS: hydrOXYzine HCL TAB* 25 MG PO PRN ×2 (04:08→15:10)
[2019-04-12] MEDS: Levothyroxine TAB* 125 MCG TAB PO SCH (05:47)
[2019-04-12] MEDS: Heparin VIAL(*) 5000 UNITS/ML VIAL (FIVE THOUSAND) SUBCUT SCH ×2 (05:47→16:15)
[2019-04-12] MEDS: Mometasone/Formoter 200/5 MDI INH SCH ×2 (08:24→11:02)
[2019-04-12] MEDS: Nicotine PATCH 14 MG/24 HR* PATCH TRANSDERM SCH (09:41)
[2019-04-12] MEDS: Furosemide TAB* 20 MG PO SCH (09:41)
[2019-04-12] MEDS: Folic Acid TAB* 1 MG PO SCH (09:42)
[2019-04-12] MEDS: Carvedilol TAB* 3.125 MG PO SCH (09:42)
[2019-04-12] MEDS: Sertraline* 100 MG TAB PO SCH (09:42)
[2019-04-12] MEDS: Lisinopril TAB* 10 MG PO SCH (09:42)
[2019-04-12] MEDS: Aspirin 81 mg CHEW TAB* 81 MG TAB.CHEW PO SCH (09:42)
[2019-04-12] MEDS: Cyanocobalamin TAB* 500 MCG PO SCH (09:42)
[2019-04-12] MEDS: guaiFENesin ER TAB 600 MG PO SCH (09:42)
[2019-04-12] MEDS: Tamsulosin CAP* 0.4 MG PO SCH (09:43)
[2019-04-12] MEDS: Ferrous Sulfate TAB* 325 MG PO SCH (09:43)
[2019-04-12] MEDS: Benzonatate CAP* 100 MG PO PRN (09:44)
[2019-04-12] MEDS: Tiotropium CAP.INH* CAP.INH/18 MCG (USE ORDER SET !) INH SCH (11:02)
[2019-04-12] MEDS: Clotrimazole TROCHE* 10 MG TROCHE PO SCH ×2 (12:29→16:14)
[2019-04-12] MEDS: Nicotine* 2MG (FRUIT FLAVOR) GUM PO PRN (15:10)
[2019-04-12 16:21] VITALS: BP 137/53
--- NOTE | 2019-04-13 03:27 | DS ---
CC: Dr. Alvarado Ryan; Dr. Gonzales DISCHARGE SUMMARY: DATE OF ADMISSION: 03/31/19 DATE OF DISCHARGE: 04/12/19 PRIMARY CARE PROVIDER: Dr. Alvarado Ryan. CONSULTING [facility] STICKER: Dr. Gonzales. DISCHARGE DIAGNOSES: 1. Acute on chronic respiratory failure with hypoxia. 2. Chronic obstructive pulmonary disease exacerbation secondary to community- acquired pneumonia. 3. Diastolic congestive heart failure exacerbation. 4. Mild hyperkalemia. 5. Oral thrush. 6. Tobacco abuse. SECONDARY DIAGNOSES: 1. Chronic obstructive pulmonary disease on home O2 at 3 L per minute. 2. Hypertension. 3. Hyperlipidemia. 4. Coronary artery disease. 5. Hypothyroidism. 6. Diastolic congestive heart failure. 7. Prior history of alcohol abuse. 8. Anxiety. 9. Depression. 10. Restless leg syndrome. 11. Bipolar disorder. 12. Chronic constipation. 13. Obesity with a BMI of 39.1. PAST SURGICAL HISTORY: 1. Status post CABG. 2. Status post left foot reconstruction. 3. Status post left shoulder surgery with rotator cuff repair. 4. Left wrist fracture open reduction and internal fixation. 5. Right inguinal hernia repair. MEDICATION LIST: 1. Acetaminophen 500 mg p.o. q.6 hours p.r.n. pain or fever. 2. Albuterol nebulizer 2.5 mg q.2 hours p.r.n. shortness of breath. 3. Albuterol/ipratropium nebulizer q.4 hours p.r.n. shortness of breath, wheezing. 4. Aspirin 81 mg p.o. daily. 5. Atorvastatin 40 mg p.o. at bedtime. 6. Carvedilol 3.125 mg p.o. b.i.d. 7. Vitamin B12 500 mcg p.o. daily. 8. Benadryl 25 mg p.o. at bedtime as needed for insomnia. 9. Ferrous sulfate 325 mg p.o. daily. 10. Breo Ellipta 200/25 mcg puff inhaled daily. 11. Folic acid 1 mg p.o. daily. 12. Furosemide 20 mg p.o. b.i.d. 13. Mucinex 600 mg p.o. q.12 hours. 14. Levothyroxine 125 mcg p.o. 6 a.m. 15. Lisinopril 2.5 mg p.o. daily. 16. Lorazepam 0.5 mg p.o. t.i.d. 17. Nystatin powder to affected rash areas t.i.d. as needed. 18. Oxycodone/acetaminophen 10/325 mg 1 tablet p.o. at bedtime. 19. Potassium chloride 10 mEq p.o. daily. 20. SSKI 0.6 mL p.o. 4 times a day p.r.n. cough. 21. Seroquel 100 mg p.o. b.i.d. 22. Ropinirole 1.5 mg p.o. at bedtime. 23. Sertraline 50 mg p.o. daily. 24. Aldactone 50 mg p.o. daily. 25. Thiamine 100 mg p.o. daily. New Medications: 1. Benzocaine/menthol 1 lozenge p.o. q.6 hours, p.r.n. sore throat. 2. Clotrimazole werner 10 mg p.o. 5 times daily for 10 days. 3. Nicotine gum p.o. q.12 hours p.r.n. cravings. 4. Nicotine patch 40 mg topical daily, remove at 2100. 5. Prednisone taper as follows 60 mg p.o. daily for 5 days, 50 mg for 5 days, 40 mg 5 days, 30 mg 5 days, 20 mg 5 days, 10 mg 5 days, 5 mg 5 days and stop. HOSPITAL COURSE: Mr. Cruz is a 69-year-old male with a past medical history as stated above that p resented to the emergency room at [facility] on 03/29/19 with complaints of cough and shortnes s of breath. He was admitted to [facility] and despite treatment he had worsening of his shor tness of breath, required Vapotherm and was referred to our hospital for a transfer for a [facility]. For more details about his presentation, I refer you to his history and physical by Dr. Inga Israel. The patient was continued on Vapotherm, steroids, started on Zithromax and bronchodilators and he had very slow improvement. It was felt that CHF is also playing a role and an echocardiogram was done. It showed an ejection fraction of 55% to 60% with normal wall motion and no significant valvular dis ease. The patient completed his antibiotic course. As his symptoms persisted, the patient underwent a CTA of the chest that was negative for PE, but showed atelectasis of the left lower lobe and a rounded co mponent in the lingula that could represent atelectasis, although underlying mass is not excluded. The patient was seen in consultation by Pulmonary (Dr. Gonzales) and her impression is that the patient is a morbidly obese gentleman with significant smoking history admitted with worsening shortness of breath being treated for acute exacerbation. She felt that the left lung changes in the CT could be s econdary to mucus plugging. Her recommendation was for a flutter valve, MetaNeb and for followup in [address] If the opacity is persistent, then he will need biopsy. The patient received education about his findings and he is aware that this opacity may represent malignancy. He underst ands that he will need to have another CAT scan done and follow up with Dr. Gonzales to decide about bi opsy and delaying to do so may worsen his prognosis and chances of treatment and cause significant pr ogression of disease and . The patient continued to improve slowly. His is back at his usual 3 L of oxygen via nasal cannula. He still has shortness of breath with exertion, but he states that he feels much improved and closer to his baseline. Despite his severe COPD, the patient continues to smoke. He received education reg arding tobacco cessation and during all these days in the hospital the patient states that his cravin gs were managed with nicotine gum and patch. So, this will be continued in the outpatient setting. On the day of discharge, the patient complained of a sore throat and he was found to have a oral thru sh probably in the setting of recent antibiotic use and high dose steroids. He was started on clotri mazole werner. The patient was continued on diuretics and did not have significant change on his jeffery ght prior to discharge. His renal function remained stable and he did have some mild hyperkalemia wh ile in the hospital, but this has improved. He will be continued on his furosemide, spironolactone, lisinopril and supplement of potassium by his primary care provider. We will need to follow up his p otassium level as outpatient. The patient is medically stable for discharge today to follow up with his primary care provider and Daisy Gonzales as outpatient. PHYSICAL EXAMINATION: Vital Signs: Temperature 98.9, heart rate is 81, respiratory rate is 20, oxyg en saturation 96% on 2 L nasal cannula, blood pressure is 137/53. General: The patient is a pleasant , obese gentleman sitting up in bed in no acute distress. HEENT: Pupils are equal, moist mucous mem branes. There is erythema and whitish plaque from oral mucosa. CVS: Normal S1 and S2. Regular rat e and rhythm. Chest: Breath sounds present bilaterally with scattered wheezes, but much improved th an on my first patient visit. Abdomen: Obese, bowel sounds present. Extremities: Trace edema. Ne uro: He is oriented x3. Able to move all 4 extremities. DIET: Heart healthy diet. ACTIVITIES: As tolerated. STATUS WHILE IN THE HOSPITAL: Inpatient. CONDITION AT THE TIME OF DISCHARGE: Fair. DISPOSITION: To [facility]. Please keep in mind this is a summarized version of this patient's complex and prolonged hospital sta y. If you need more information, please feel free to call me at [phone] or please obtain the [facility] medical records. TIME SPENT: Approximately 50 minutes was spent to complete this discharge. [id number] #: [id number]
== END 2019-04-12 15:20 | disposition home or self-care (01) | DRG 189 ==
LOC: ICU 13:43 → MED 04-01 09:29
PROVIDERS: ADMIT Family Medicine; ATTEND Internal Medicine
DX: J96.01 Acute respiratory failure with hypoxia (principal); J18.9 Pneumonia, unspecified organism; I50.33 Acute on chronic diastolic (congestive) heart failure; J44.1 Chronic obstructive pulmonary disease with (acute) exacerbation; T17.890A Other foreign object in other parts of respiratory tract causing asphyxiation, initial encounter; B37.0 Candidal stomatitis; J44.0 Chronic obstructive pulmonary disease with (acute) lower respiratory infection; I11.0 Hypertensive heart disease with heart failure; F41.9 Anxiety disorder, unspecified; E78.5 Hyperlipidemia, unspecified; I25.10 Atherosclerotic heart disease of native coronary artery without angina pectoris; E03.9 Hypothyroidism, unspecified; F31.9 Bipolar disorder, unspecified; G25.81 Restless legs syndrome; K59.09 Other constipation; D64.9 Anemia, unspecified; E66.01 Morbid (severe) obesity due to excess calories; I45.10 Unspecified right bundle-branch block; F17.210 Nicotine dependence, cigarettes, uncomplicated; E87.5 Hyperkalemia; Z95.1 Presence of aortocoronary bypass graft; Z88.1 Allergy status to other antibiotic agents; Z91.040 Latex allergy status; Z82.49 Family history of ischemic heart disease and other diseases of the circulatory system; Z72.89 Other problems related to lifestyle; Z68.39 Body mass index [BMI] 39.0-39.9, adult; Z91.14 Patient's other noncompliance with medication regimen; Z79.82 Long term (current) use of aspirin
CPT/HCPCS: 36415; 71045; 71275; 80048; 80202; 82565; 83735; 83880; 84520; 85025; 85610; 87641; 93306; 94640; 94667; 99406; A9270-GY; C8929; G8978-GP-CI; G8979-GP-CI; G8980-GP-CI; J0456; J0696; J1644; J2543; J2920; J2930; J3370; Q9967

== ENCOUNTER 2022-10-19 20:18 | Inpatient (IN) ==
[2022-10-19] MEDS ORDERED: Propofol 10 mg/ml 100 ML BTL 100 ML ONE (20:22)
[2022-10-19] MEDS ORDERED: methylPREDNISolone SOD SUCC 125 mg 2 ML VIAL IV ONE (20:40)
[2022-10-19] MEDS ORDERED: Albuterol/Ipratropium NEB.SOL (2.5/0.5 MG) 3 ML NEB.SOLN INH PRN (20:42)
[2022-10-19] MEDS: Propofol 10 mg/ml 100 ML BTL 100 ML IV SCH (21:00)
[2022-10-19 21:09] LABS: Hematocrit 34 % (42-52); Hemoglobin 10.9 g/dL (14.0-18.0); Mean Corpuscular HGB Conc 32 g/dL (31-36); Mean Corpuscular Hemoglobin 32 pg (27-31); Mean Corpuscular Volume 101 fL (80-94); Mean Platelet Volume 6.7 fL (7.4-10.4); Platelet Count 215 10^3/uL (150-450); Red Blood Count 3.41 10^6 /uL (4.18-5.48); Red Cell Distribution Width 15 % (10-15); White Blood Count 9.6 10^3/uL (3.5-10.8)
[2022-10-19] MEDS ORDERED: Furosemide 40 mg/4 ml IV VIAL IV SLOW PU ONE (21:22)
[2022-10-19 21:38] LABS: Potassium 4.8 mmol/L (3.5-5.0); eGFR CKD-EPI 79.9 (>60)
[2022-10-19 22:00] LABS: PCO2 Arterial 71 mmHg (35-45); PO2 Arterial 118 mmHg (80-100)
[2022-10-19] MEDS ORDERED: Norepinephrine 16MCG/ML BAGD5W 4,000 MCG/250 ML BAG IV SCH (22:00)
[2022-10-19] MEDS: Enoxaparin 40 MG/0.4 ML SYR SUBCUT SCH (23:13)
[2022-10-19] MEDS: Pantoprazole VIAL 40 MG VIAL IV SCH (23:13)
[2022-10-19] MEDS: Chlorhexidine MOUTHWASH 0.12% 15 ML UDC TOPICAL SCH (23:13)
[2022-10-20] MEDS ORDERED: Bumetanide IV 0.25 MG/ML 4 ml VIAL (1 mg) SLOW PUSH ONE (02:21)
[2022-10-20] MEDS: Propofol 10 mg/ml 100 ML BTL 100 ML IV SCH ×7 (02:26→22:04)
[2022-10-20] MEDS: Chlorhexidine MOUTHWASH 0.12% 15 ML UDC TOPICAL SCH ×6 (02:59→23:59)
[2022-10-20] MEDS: methylPREDNISolone SOD SUCC 40 mg/ml 1 ml VIAL IV SCH ×3 (04:44→20:36)
[2022-10-20] MEDS ORDERED: fentaNYL 100 mcg/2 ml 50 MCG/ML VIAL ONE (05:40)
[2022-10-20] MEDS ORDERED: fentaNYL 100 mcg/2 ml 50 MCG/ML VIAL IV SLOW PU ONE (05:59)
[2022-10-20 06:27] LABS: ABS Lymphocytes 0.6 10^3/ul (1.0-4.8); ABS Monocytes 0.4 10^3/ul (0-0.8); ABS Neutrophils 7.9 10^3/ul (1.5-7.7); Hematocrit 30 % (42-52); Lymphocyte % 7.2 %; Mean Corpuscular HGB Conc 33 g/dL (31-36); Mean Corpuscular Hemoglobin 33 pg (27-31); Mean Corpuscular Volume 99 fL (80-94); Mean Platelet Volume 6.7 fL (7.4-10.4); Platelet Count 201 10^3/uL (150-450); Red Blood Count 3.07 10^6 /uL (4.18-5.48); Red Cell Distribution Width 15 % (10-15)
[2022-10-20 07:02] LABS: Magnesium 1.9 mg/dL (1.9-2.7); Potassium 4.1 mmol/L (3.5-5.0); eGFR CKD-EPI 85.1 (>60)
[2022-10-20] MEDS: cefTRIAXone 1 gm/50 mL D5W 1 GM/50 ML BAG IV SCH (07:46)
[2022-10-20] MEDS ORDERED: Perflutren Lipid Microsphere 3 ML VIAL ONE (09:12)
[2022-10-20] MEDS: Azithromycin 500 mg/250 ml NS 500 MG/250 ML BAG IVPB SCH (09:15)
[2022-10-20] MEDS: fentaNYL 100 mcg/2 ml 50 MCG/ML VIAL IV SLOW PU PRN ×4 (10:16→21:55)
[2022-10-20] MEDS ORDERED: Albuterol/Ipratropium NEB.SOL (2.5/0.5 MG) 3 ML NEB.SOLN INH SCH (11:00)
[2022-10-20] MEDS: Albuterol/Ipratropium NEB.SOL (2.5/0.5 MG) 3 ML NEB.SOLN INH SCH ×3 (11:57→23:40)
[2022-10-20] MEDS: Nicotine PATCH 21 MG/24 HR PATCH TRANSDERM SCH (12:58)
[2022-10-20] MEDS ORDERED: Levothyroxine 100 MCG/5 ML VIAL IV SCH (13:20)
[2022-10-20 13:56] LABS: TSH Ultra Thyroid Stim Horm 6.71 mcIU/mL (0.34-5.60)
[2022-10-20] MEDS: Levothyroxine 100 MCG/5 ML VIAL IV SCH (14:22)
[2022-10-20] MEDS ORDERED: Thiamine 100 MG/ML 2 ml VIAL (200 mg) IV SCH (15:00)
[2022-10-20] MEDS: Thiamine IV 100 MG in NS 0.9% 50 ML Q24H IV SCH (17:30)
[2022-10-20] MEDS ORDERED: Midazolam 5 mg/5 ml VIAL 1 mg/ml 5 ml VIAL (5 mg) IV SLOW PU PRN (22:04)
[2022-10-21] MEDS: Enoxaparin 40 MG/0.4 ML SYR SUBCUT SCH ×2 (00:01→22:37)
[2022-10-21] MEDS: Pantoprazole VIAL 40 MG VIAL IV SCH ×2 (00:01→22:38)
[2022-10-21] MEDS: Propofol 10 mg/ml 100 ML BTL 100 ML IV SCH ×5 (00:28→11:42)
[2022-10-21] MEDS: Chlorhexidine MOUTHWASH 0.12% 15 ML UDC TOPICAL SCH ×6 (02:47→22:32)
[2022-10-21] MEDS: fentaNYL 100 mcg/2 ml 50 MCG/ML VIAL IV SLOW PU PRN ×3 (04:55→13:27)
[2022-10-21] MEDS: methylPREDNISolone SOD SUCC 40 mg/ml 1 ml VIAL IV SCH ×2 (04:57→16:55)
[2022-10-21 05:00] LABS: ABS Lymphocytes 0.7 10^3/ul (1.0-4.8); ABS Monocytes 0.4 10^3/ul (0-0.8); ABS Neutrophils 6.7 10^3/ul (1.5-7.7); Eosinophil % 0.1 %; Hematocrit 31 % (42-52); Hemoglobin 10.3 g/dL (14.0-18.0); Lymphocyte % 8.5 %; Mean Corpuscular HGB Conc 33 g/dL (31-36); Mean Corpuscular Hemoglobin 32 pg (27-31); Mean Corpuscular Volume 99 fL (80-94); Mean Platelet Volume 6.8 fL (7.4-10.4); Nucleated Red Blood Cells % 0.1; Platelet Count 191 10^3/uL (150-450); Red Blood Count 3.18 10^6 /uL (4.18-5.48); Red Cell Distribution Width 15 % (10-15); White Blood Count 7.8 10^3/uL (3.5-10.8)
[2022-10-21] MEDS: Levothyroxine 100 MCG/5 ML VIAL IV SCH (05:00)
[2022-10-21 06:04] LABS: Magnesium 2.1 mg/dL (1.9-2.7); eGFR CKD-EPI 93.6 (>60)
[2022-10-21] MEDS: cefTRIAXone 1 gm/50 mL D5W 1 GM/50 ML BAG IV SCH (06:18)
[2022-10-21] MEDS: Albuterol/Ipratropium NEB.SOL (2.5/0.5 MG) 3 ML NEB.SOLN INH SCH ×5 (07:05→19:10)
[2022-10-21] MEDS: Azithromycin 500 mg/250 ml NS 500 MG/250 ML BAG IVPB SCH (07:14)
[2022-10-21] MEDS: Nicotine PATCH 21 MG/24 HR PATCH TRANSDERM SCH (08:23)
[2022-10-21] MEDS ORDERED: Bumetanide IV 0.25 MG/ML 4 ml VIAL (1 mg) SLOW PUSH ONE ×2 (10:02→15:03)
[2022-10-21] MEDS: Thiamine IV 100 MG in NS 0.9% 50 ML Q24H IV SCH (10:44)
[2022-10-21] MEDS ORDERED: fentaNYL 100 mcg/2 ml 50 MCG/ML VIAL IV SLOW PU ONE (11:14)
[2022-10-21 14:00] LABS: PCO2 Arterial 54 mmHg (35-45); PO2 Arterial 80 mmHg (80-100)
[2022-10-21] MEDS ORDERED: Dexmedetomidine 1,000 MCG in NS 0.9% 250 ml 240 ML IV SCH (14:00)
[2022-10-21] MEDS ORDERED: Albuterol/Ipratropium NEB.SOL (2.5/0.5 MG) 3 ML NEB.SOLN ONE (14:06)
[2022-10-21] MEDS ORDERED: Albuterol 2.5mg/3 ml (0.083%) NEB.SOLN INH ONE (14:43)
[2022-10-21] MEDS ORDERED: Morphine 2 MG/ML SYRINGE IV ONE ×2 (15:02→21:46)
[2022-10-21] MEDS ORDERED: Magnesium Sulfate 2 gm BAG 2 GM/50 ML BAG IVPB ONE (15:30)
[2022-10-21] MEDS: DULoxetine DR 60 mg CAP PO SCH (17:44)
[2022-10-21 19:01] LABS: Body Fluid Source Broncheoalveolar lav
[2022-10-21 21:14] LABS: Body Fluid Color Pink; Body Fluid Total Cells Counted 25
[2022-10-21 21:15] LABS: Body Fluid Appearance Bloody
[2022-10-22] MEDS: Albuterol/Ipratropium NEB.SOL (2.5/0.5 MG) 3 ML NEB.SOLN INH SCH ×4 (00:26→19:14)
[2022-10-22] MEDS: methylPREDNISolone SOD SUCC 40 mg/ml 1 ml VIAL IV SCH (04:47)
[2022-10-22] MEDS: Levothyroxine 100 MCG/5 ML VIAL IV SCH (04:47)
[2022-10-22 04:54] LABS: ABS Lymphocytes 0.8 10^3/ul (1.0-4.8); ABS Monocytes 0.6 10^3/ul (0-0.8); ABS Neutrophils 5.1 10^3/ul (1.5-7.7); Eosinophil % 0.2 %; Hematocrit 33 % (42-52); Lymphocyte % 12.8 %; Mean Corpuscular HGB Conc 33 g/dL (31-36); Mean Corpuscular Hemoglobin 32 pg (27-31); Mean Corpuscular Volume 98 fL (80-94); Mean Platelet Volume 6.8 fL (7.4-10.4); Platelet Count 170 10^3/uL (150-450); Red Cell Distribution Width 15 % (10-15); White Blood Count 6.6 10^3/uL (3.5-10.8)
[2022-10-22 05:32] LABS: Blood Urea Nitrogen 14 mg/dL (6-24); Calcium 7.9 mg/dL (8.6-10.3); Chloride 95 mmol/L (101-111); Glucose 128 mg/dL (70-100); Magnesium 2.5 mg/dL (1.9-2.7); Sodium 138 mmol/L (135-145); eGFR CKD-EPI 97.5 (>60)
[2022-10-22 05:35] LABS: CO2 Carbon Dioxide 43 mmol/L (22-32)
[2022-10-22] MEDS: cefTRIAXone 1 gm/50 mL D5W 1 GM/50 ML BAG IV SCH (06:11)
[2022-10-22] MEDS: Azithromycin 500 mg/250 ml NS 500 MG/250 ML BAG IVPB SCH (07:21)
[2022-10-22] MEDS ORDERED: Potassium Chlor 20 meq TAB.ER PO ONE (08:00)
[2022-10-22] MEDS ORDERED: MAGNESIUM CITRATE 100 MG PO PRN (08:15)
[2022-10-22] MEDS: DULoxetine DR 60 mg CAP PO SCH (09:28)
[2022-10-22] MEDS: Polyethylene Glycol 3350 17 GM PACKET PO SCH (09:28)
[2022-10-22] MEDS: Nicotine PATCH 21 MG/24 HR PATCH TRANSDERM SCH (09:28)
[2022-10-22] MEDS: Enoxaparin 40 MG/0.4 ML SYR SUBCUT SCH (22:30)
[2022-10-22 23:44] LABS: Albumin 3.4 g/dL (3.2-5.2); Albumin/Globulin Ratio 1.7 (1-3); Calcium 7.8 mg/dL (8.6-10.3); Magnesium 2.1 mg/dL (1.9-2.7); Phosphorus 2.5 mg/dL (2.5-5.0); Potassium 3.6 mmol/L (3.5-5.0); Total Bilirubin 0.4 mg/dL (0.2-1.0); Total Protein 5.4 g/dL (6.4-8.9); eGFR CKD-EPI 101.8 (>60)
[2022-10-22] MEDS ORDERED: KCL 20 MEQ/100 ML IVPREMIX 20 MEQ/100 ML BAG IV ONE (23:56)
[2022-10-23 04:43] LABS: ABS Eosinophils 0.1 10^3/ul (0-0.6); ABS Lymphocytes 1.3 10^3/ul (1.0-4.8); ABS Monocytes 0.6 10^3/ul (0-0.8); ABS Neutrophils 3.5 10^3/ul (1.5-7.7); Eosinophil % 1.5 %; Hematocrit 34 % (42-52); Hemoglobin 11.1 g/dL (14.0-18.0); Lymphocyte % 23.6 %; Mean Corpuscular HGB Conc 33 g/dL (31-36); Mean Corpuscular Hemoglobin 32 pg (27-31); Mean Corpuscular Volume 99 fL (80-94); Mean Platelet Volume 6.7 fL (7.4-10.4); Platelet Count 165 10^3/uL (150-450); Red Blood Count 3.45 10^6 /uL (4.18-5.48); Red Cell Distribution Width 15 % (10-15); White Blood Count 5.5 10^3/uL (3.5-10.8)
[2022-10-23 04:56] LABS: Calcium 7.6 mg/dL (8.6-10.3); Magnesium 2.1 mg/dL (1.9-2.7); Potassium 3.8 mmol/L (3.5-5.0); eGFR CKD-EPI 100.8 (>60)
[2022-10-23] MEDS: cefTRIAXone 1 gm/50 mL D5W 1 GM/50 ML BAG IV SCH (05:27)
[2022-10-23] MEDS: Azithromycin 500 mg/250 ml NS 500 MG/250 ML BAG IVPB SCH (06:41)
[2022-10-23] MEDS: Albuterol/Ipratropium NEB.SOL (2.5/0.5 MG) 3 ML NEB.SOLN INH SCH (07:45)
[2022-10-23] MEDS: Nicotine PATCH 21 MG/24 HR PATCH TRANSDERM SCH (09:03)
[2022-10-23] MEDS: Polyethylene Glycol 3350 17 GM PACKET PO SCH (09:03)
[2022-10-23] MEDS: DULoxetine DR 60 mg CAP PO SCH (09:03)
[2022-10-23] MEDS ORDERED: Albuterol 2.5mg/3 ml (0.083%) NEB.SOLN INH PRN (10:03)
[2022-10-23] MEDS: Tiotropium Brom/Olodaterol MDI INH SCH (13:39)
[2022-10-24] MEDS: Enoxaparin 40 MG/0.4 ML SYR SUBCUT SCH (01:43)
[2022-10-24 05:57] LABS: ABS Eosinophils 0.1 10^3/ul (0-0.6); ABS Lymphocytes 1.5 10^3/ul (1.0-4.8); ABS Monocytes 0.6 10^3/ul (0-0.8); Eosinophil % 1.5 %; Hematocrit 38 % (42-52); Hemoglobin 12.2 g/dL (14.0-18.0); Lymphocyte % 20.6 %; Mean Corpuscular HGB Conc 32 g/dL (31-36); Mean Corpuscular Hemoglobin 31 pg (27-31); Mean Corpuscular Volume 98 fL (80-94); Mean Platelet Volume 6.5 fL (7.4-10.4); Nucleated Red Blood Cells % 0.1; Platelet Count 191 10^3/uL (150-450); Red Blood Count 3.91 10^6 /uL (4.18-5.48); Red Cell Distribution Width 15 % (10-15); White Blood Count 7.3 10^3/uL (3.5-10.8)
[2022-10-24 06:42] LABS: Calcium 8.3 mg/dL (8.6-10.3); Potassium 4.2 mmol/L (3.5-5.0); eGFR CKD-EPI 101.3 (>60)
[2022-10-24] MEDS: Tiotropium Brom/Olodaterol MDI INH SCH (07:10)
[2022-10-24] MEDS: Nicotine PATCH 21 MG/24 HR PATCH TRANSDERM SCH (07:57)
[2022-10-24] MEDS: DULoxetine DR 60 mg CAP PO SCH (07:57)
[2022-10-24] MEDS: Polyethylene Glycol 3350 17 GM PACKET PO SCH (07:58)
[2022-10-24] MEDS: Magnesium Hydroxide LIQ 30 ML UDC PO ONE ×2 (11:56→11:59)
[2022-10-24 14:42] VITALS: BP 104/62
== END 2022-10-24 17:21 | disposition home or self-care (01) | DRG 208 ==
LOC: ICU 20:18
PROVIDERS: ADMIT Internal Medicine Critical Care Medicine; ATTEND Internal Medicine Critical Care Medicine